=== PATIENT | male | born 1960 | race American Indian/Alaskan Native ===

== ENCOUNTER 2019-01-10 18:26 | Inpatient (IN) | payer OTHER ==
--- NOTE | 2019-01-10 18:35 | Event Note ---
ED Screening Note Date of service: 01/10/19 Time: 18:33 ED Screening Note: This is a 58 y.o. M. that presents to the ER with right sided abdominal pain x 1 week. Denies n/v/d, fever, chills, urinary symptoms. This initial assessment/diagnostic orders/clinical plan/treatment(s) is/are subject to change based on patients health status, clinical progression and re- assessment by fellow clinical providers in the ED. Further treatment and workup at subsequent clinical providers discretion. Patient/guardian urged not to elope from the ED as their condition may be serious if not clinically assessed and managed. Initial orders include: Labs
[2019-01-10 19:27] LABS: Mean Corpuscular HGB Conc 30 % (32-34); Mean Corpuscular Volume 73 fl (84-94); Platelet Count 594 K/mm3 (140-440); Red Blood Count 4.49 M/mm3 (3.65-5.03)
[2019-01-10 19:30] LABS: Hematocrit 32.7 % (35.5-45.6); Hemoglobin 9.9 gm/dl (11.8-15.2); Red Cell Distribution Width 21.5 % (13.2-15.2)
[2019-01-10] MEDS ORDERED: ZOSYN/NS 3.375GM/50ML 3.375 GM/50 ML BAG IV ONE (20:23)
[2019-01-10] MEDS ORDERED: NACL 0.9% 1000 ML 1,000 ML IV ONE (20:24)
[2019-01-10 20:30] LABS: Alanine Aminotransferase 12 units/L (7-56); Albumin 3.1 g/dL (3.9-5); BUN/Creatinine Ratio 10; Blood Urea Nitrogen 8 mg/dL (9-20); Calcium 9.2 mg/dL (8.4-10.2); Hemolysis Index 0
--- NOTE | 2019-01-10 20:39 | Emergency Department Report ---
ED Abdominal Pain HPI - General Chief Complaint: Abdominal Pain Stated Complaint: STOMACH PAIN Time Seen by Provider: 01/10/19 18:33 Source: patient Mode of arrival: Stretcher Limitations: No Limitations - History of Present Illness Initial Comments: Patient is 58 years old male with no significant past medical history. Patient presented to the ER complaining of right lower quadrant pain for the last 7 days. Patient also stated that he has been having fever and chills. Patient denied any diarrhea. No recent abdominal injury. Patient denied any urinary symptoms. MD Complaint: abdominal pain Location: RLQ Radiation: none - Related Data Previous Rx's Medication Instructions Recorded Last Taken Type HYDROcodone/APAP 5-325 [[place]ady 1 each PO Q6HR PRN #15 tablet 05/27/13 Unknown Rx 5/325 mg] SILVER sulfADIAZINE 50 GRAM 1 applicatio TP BID #1 tube 05/27/13 Unknown Rx [Thermazene 50 Gram] Sulfamethoxazole/Trimethoprim 1 each PO BID #14 tablet 05/27/13 Unknown Rx [Bactrim Ds] cephALEXin [Keflex] 500 mg PO Q6H #28 capsule 05/27/13 Unknown Rx Allergies Allergy/AdvReac Type Severity Reaction Status Date / Time quinine Allergy Rash Verified 05/27/13 13:53 ED Review of Systems ROS: Stated complaint: STOMACH PAIN Other details as noted in HPI Comment: All other systems reviewed and negative Constitutional: denies: chills, fever Respiratory: denies: cough, shortness of breath, SOB with exertion Cardiovascular: denies: chest pain, palpitations Gastrointestinal: abdominal pain. denies: nausea, vomiting, diarrhea, constipation Genitourinary: denies: urgency, dysuria Musculoskeletal: denies: back pain Neurological: denies: headache, weakness ED Past Medical Hx - Past Medical History Previous Medical History?: No - Surgical History Past Surgical History?: No - Social History Smoking Status: Never Smoker - Medications Home Medications: Home Medications Medication Instructions Recorded Confirmed Last Taken Type HYDROcodone/APAP 5-325 [[place]ady 1 each PO Q6HR PRN #15 tablet 05/27/13 Unknown Rx 5/325 mg] SILVER sulfADIAZINE 50 GRAM 1 applicatio TP BID #1 tube 05/27/13 Unknown Rx [Thermazene 50 Gram] Sulfamethoxazole/Trimethoprim 1 each PO BID #14 tablet 05/27/13 Unknown Rx [Bactrim Ds] cephALEXin [Keflex] 500 mg PO Q6H #28 capsule 05/27/13 Unknown Rx ED Physical Exam - General Limitations: No Limitations General appearance: alert, in no apparent distress - Head Head exam: Present: atraumatic, normocephalic, normal inspection - Eye Eye exam: Present: normal appearance, PERRL - ENT ENT exam: Present: mucous membranes dry - Neck Neck exam: Present: normal inspection. Absent: tenderness, meningismus, lymphadenopathy - Respiratory Respiratory exam: Present: normal lung sounds bilaterally - Cardiovascular Cardiovascular Exam: Present: tachycardia - GI/Abdominal GI/Abdominal exam: Present: soft, normal bowel sounds. Absent: distended, tenderness, guarding, rebound, rigid, mass, bruit, pulsatile mass, hernia - Extremities Exam Extremities exam: Present: normal inspection, full ROM, normal capillary refill. Absent: tenderness, pedal edema, joint swelling, calf tenderness - Back Exam Back exam: Present: normal inspection, full ROM. Absent: CVA tenderness (R), CVA tenderness (L), muscle spasm, paraspinal tenderness, vertebral tenderness - Neurological Exam Neurological exam: Present: alert, oriented X3, CN II-XII intact, normal gait, reflexes normal - Psychiatric Psychiatric exam: Present: normal mood - Skin Skin exam: Present: warm, intact, normal color ED Course Vital Signs 01/10/19 18:28 Temperature 99.6 F Pulse Rate 118 H Respiratory 18 Rate Blood Pressure 125/77 O2 Sat by Pulse 100 Oximetry ED Medical Decision Making - Lab Data Result diagrams: 01/10/19 18:51 01/10/19 18:51 - Radiology Data Radiology results: report reviewed - Medical Decision Making Patient is 58 years old male with no significant past medical history. Patient presented to the ER complaining of right lower quadrant pain for the last 7 days. Patient also stated that he has been having fever and chills. Patient denied any diarrhea. No recent abdominal injury. Patient denied any urinary symptoms. I discussed the patient with Dr Galvin from surgery advised to keep patient npo and admit to the hospitalist. I discussed the patient with Dr Raul Cotto, he agreed to consult on the patient. I discussed the patient with DR Ruiz, he agreed to admit to the hospital for further management. Critical Care Time: Yes Critical care time in (mins) excluding proc time.: 30 Critical care attestation.: If time is entered above; I have spent that time in minutes in the direct care of this critically ill patient, excluding procedure time. ED Disposition Clinical Impression: Abdominal abscess, Abdominal pain Disposition: OP ADMIT IP TO THIS HOSP Is pt being admited?: Yes Condition: Stable
[2019-01-10 21:17] LABS: Basophils % (Manual) 0 % (0.0-1.8); Eosinophils % (Manual) 0 % (0.0-4.3); Platelet Estimate Appears Increased; Total Cells Counted 100
[2019-01-10 21:18] LABS: Anisocytosis 1+; Hypochromasia 1+; Large Platelets 1+; Poikilocytosis 1+
--- NOTE | 2019-01-10 22:14 | Cat Scan Report ---
CT ABDOMEN AND PELVIS WITH IV CONTRAST INDICATION: abdominal pain. COMPARISON: None available. TECHNIQUE: All CT scans at this facility use dose modulation, automated exposure control, iterative reconstructi on or weight based dosing, when appropriate, to reduce radiation dose to as low as reasonably achieva ble. FINDINGS: Lung Bases: No significant abnormality. Skeletal System: No acute abnormality. ABDOMEN: Liver: There is a cyst in the anterior inferior left hepatic lobe. Hepatic parenchyma is otherwise un remarkable. Gallbladder: Mild gallbladder wall edema is noted. The gallbladder is contracted. Bile Ducts: There is very mild intrahepatic and common bile duct dilatation. Pancreas: The pancreatic duct is mildly dilated. There is mild inflammation around the pancreatic hea d. Spleen: No significant abnormality. Adrenals: No significant abnormality. Right Kidney: No significant abnormality. Left Kidney: No significant abnormality. Upper GI tract: There is mild inflammation around the proximal duodenum. Lymph Nodes: There are several mesenteric nodes which are not enlarged but increased in number. There are a few borderline enlarged retroperitoneal periaortic lymph nodes. Aorta: No significant abnormality. Additional Findings: No significant abnormality. PELVIS: Colon: There is an inflammatory process involving the proximal transverse colon with somewhat serpig inous peripherally enhancing fluid collection in the pericolonic right upper quadrant which may be in tramural. There is marked wall thickening of the adjacent proximal transverse colon/hepatic flexure. More distal colon is unremarkable. Urinary Bladder and Distal Ureters: There is mild bladder wall thickening. Appendix: No significant abnormality. Lymph Nodes: No significant adenopathy. Additional Findings: Prostate is enlarged. IMPRESSION: 1. There is severe inflammatory process which involves the proximal transverse colon. This is concer marcello for primary colonic carcinoma with phlegmon versus early abscess. The pericolonic collection whi ch may be intramural is difficult to measure given its serpiginous nature but measures approximately 6 x 6 cm on axial image 79 of series 2. There is secondary inflammation of the duodenum, pancreas, an d gallbladder which are all in this area. Mesenteric and retroperitoneal nodes could be metastatic or reactive. This could be secondary to an inflammatory process; however, I do not see significant dive rticulosis and the remainder of the colon as well as the appendix are normal. Surgical consultation i s needed. There is no colonic obstruction at this time. There is trace free fluid in the pelvis. No f ree air is seen. No gas is seen within the pericolonic collection. 2. Prostate is enlarged with probable mild chronic outlet obstruction. Signer Name: Neville Mi MD Signed: 01/10/2019 10:09 PM Workstation Name: [id number]
[2019-01-10 22:40] LABS: Bilirubin,Urine NEG (Negative); Blood,Urine NEG (Negative); Color,Urine Amber (Yellow); Mucus,Urine 1+ /HPF; Urobilinogen,Urine < 2.0 mg/dL (<2.0)
[2019-01-10] MEDS ORDERED: ZOFRAN IV PRN (23:12)
[2019-01-10] MEDS ORDERED: TYLENOL PR PRN (23:16)
[2019-01-10] MEDS ORDERED: MORPHINE IV PRN (23:16)
[2019-01-10] MEDS ORDERED: FLAGYL 500 MG/100 ML 500 MG/100 ML BAG IV ONE (23:52)
[2019-01-10] MEDS: FLAGYL 500 MG/100 ML 500 MG/100 ML BAG IV SCH (23:57)
[2019-01-11 05:42] LABS: Mean Corpuscular HGB Conc 30 % (32-34); Mean Corpuscular Volume 73 fl (84-94); Platelet Count 507 K/mm3 (140-440); Red Blood Count 4.39 M/mm3 (3.65-5.03)
--- NOTE | 2019-01-11 05:42 | History and Physical Report ---
CHIEF COMPLAINT: Abdominal pain. HISTORY OF PRESENTING ILLNESS: The patient is a 58-year-old male who said he has been having right upper and right lower quadrant abdominal pain going on for about 7 days. Pain is associated with nausea and vomiting. Also, there is history of fever and chills. The patient denied history of constipation and denied history of diarrhea and described the pain as dull pain that does not radiate. PAST MEDICAL HISTORY: Unremarkable. PAST SURGICAL HISTORY: Unremarkable. FAMILY HISTORY: Reviewed and noncontributory. SOCIAL HISTORY: The patient does not smoke, does not drink alcohol and does not use illicit drug. MEDICATIONS: The patient is on [place], hydrocodone/acetaminophen 5/325 mg 1 by mouth every 6 hours as needed for pain. The patient is also on Silvadene topical, 1 application topically twice daily and on double strength Bactrim one by mouth twice daily. The patient is on Keflex 500 mg by mouth every 6 hours. ALLERGIES: THE PATIENT IS ALLERGIC TO QUININE. REVIEW OF SYSTEMS: CONSTITUTIONAL: There is fever. There are chills, but no diaphoresis. HEENT: There is no headache or sore throat. CARDIOVASCULAR SYSTEM: There is no chest pain or orthopnea. RESPIRATORY SYSTEM: There is no shortness of breath or cough. GASTROINTESTINAL SYSTEM: Abdominal pain present. Nausea and vomiting present. No diarrhea, no constipation. NEUROLOGICAL SYSTEM: There is no numbness, no dizziness, no altered mental status. MUSCULOSKELETAL SYSTEM: There is no joint pain or swelling. DERMATOLOGICAL SYSTEM: There is no skin rash or itching. GENITOURINARY SYSTEM: There is no dysuria, hematuria, or flank pain. Rest of system review is normal. PHYSICAL EXAMINATION: GENERAL: At the time of exam, the patient was found to be alert, oriented x 3 and not in acute distress. VITAL SIGNS: At the initial time of presentation showed temperature of 99.6 degrees Fahrenheit, pulse of 108, respirations 18, blood pressure 125/77, O2 sat of 100% on room air. HEENT: Showed pupils to be equal, round, reactive to light and accommodating. Extraocular muscles are intact. NECK: Supple with no JVD or carotid bruit. CARDIOVASCULAR SYSTEM: Showed normal first and second heart sounds with no gallops or murmurs. RESPIRATORY SYSTEM: Showed good air entry on both sides of the lungs with no abnormal breath sounds. GASTROINTESTINAL SYSTEM: Showed abdomen to be full, soft with tenderness in the right upper quadrant area. There is no rigidity and there is a palpable liver in the right upper quadrant area below the right costal margin. Bowel sound is normal and there is no rigidity or rebound tenderness. NEUROLOGICAL SYSTEM: Shows no focal deficit. MUSCULOSKELETAL SYSTEM: Showed no joint swelling or tenderness. DERMATOLOGICAL SYSTEM: Showed no skin rash. GENITOURINARY SYSTEM: Showing no costovertebral angle tenderness. PERTINENT LABORATORY: The patient had CBC done with elevated white count of 23,800 with low hemoglobin of 9.9 and low hematocrit of 32.7 with CBC differential showing elevated segmentary neutrophil count of 91%. The patient's chemistry showed low sodium of 133 with low chloride of 95.5 and low CO2 of 21 with rest of chemistry showing slight decrease in albumin level of 3.1. The patient's urinalysis was unremarkable. IMAGING STUDIES: The patient had CT of the abdomen and pelvis done with IV contrast and this shows severe inflammatory process involving the proximal transverse colon and the radiologist said it is concerning for primary colonic carcinoma with phlegmon versus early abscess. The mesenteric and retroperitoneal nodes could be metastatic or reactive according to the radiologist. There is no evidence of diverticulosis and the appendix was visualized as normal. Radiologist recommended to get a surgical consult. DIAGNOSES: 1. Intraabdominal abscess versus malignancy. 2. Sepsis. 3. Abdominal pain. PLAN OF CARE: 1. The patient will be admitted to medical/surgical white. 2. The patient will be on IV Zosyn 3.375 grams q. 8 hours and also IV metronidazole 500 mg q. 8 hours. 3. The patient will also be on Levaquin 1 gram q. 24 hours for treatment of possible sepsis. 4. The patient will remain n.p.o. until seen by the surgeon. 5. The patient will continue surgical consult with Dr. Galvin and GI consult with Dr. Raul Cotto as requested by the Emergency Room physician. 6. The patient will have CBC checked this morning. 7. The patient will be on IV normal saline running at 150 mL as maintenance fluid for possible sepsis. 8. The patient will be on Tylenol 650 mg rectally every 4 hours for fever and headache and will be on IV Zofran 4 mg every 8 hours for nausea and vomiting. 9. The patient will be on IV morphine 2 mg every 4 hours as needed for pain. 10. latic acid level [facility]# [id number] [facility]/SWETHA DALEY
[2019-01-11] MEDS: FLAGYL 500 MG/100 ML 500 MG/100 ML BAG IV SCH ×3 (05:43→21:31)
[2019-01-11 05:45] LABS: Hemoglobin 9.6 gm/dl (11.8-15.2)
[2019-01-11 05:46] LABS: Hematocrit 31.9 % (35.5-45.6); Red Cell Distribution Width 21.4 % (13.2-15.2)
[2019-01-11] MEDS: ZOSYN/NS 3.375GM/50ML 3.375 GM/50 ML BAG IV SCH ×3 (06:33→21:31)
[2019-01-11] MEDS: NACL 0.9% 1000 ML 1,000 ML IV SCH ×3 (10:23→16:58)
[2019-01-11] MEDS: LEVAQUIN 750MG/150ML 750 MG/150 ML BAG IV SCH (10:29)
--- NOTE | 2019-01-11 11:32 | Progress Note ---
Assessment and Plan Assessment and plan: Patient is a 58 yo AA man without any known chronic medical problems who presents to [facility] ED with abd pains. He was found to colon mass or abscess or mass causing abscess. * CT abd/pelvis with contrast IMPRESSION: 1. There is severe inflammatory process which involves the proximal transverse colon. This is concerning for primary colonic carcinoma with phlegmon versus early abscess. The pericolonic collection which may be intramural is difficult to measure given its serpiginous nature but measures approximately 6 x 6 cm on axial image 79 of series 2. There is secondary inflammation of the duodenum, pancreas, and gallbladder which are all in this area. Mesenteric and retroperitoneal nodes could be metastatic or reactive. This could be secondary to an inflammatory process; however, I do not see significant diverticulosis and the remainder of the colon as well as the appendix are normal. Surgical consultation is needed. There is no colonic obstruction at this time. There is trace free fluid in the pelvis. No free air is seen. No gas is seen within the pericolonic collection. 2. Prostate is enlarged with probable mild chronic outlet obstruction. Suspected Colon cancer with abscess vs mets: treat with IV abx, consulted GI, bowel rest, pain control, IVFs Sepsis with suspected colonic abscess: GS to evaluate Microcytic anemia most likely related to the above: monitor cbc closely Hyponatremia, hypovolemia: treat with IVFs History Interval history: Patient was seen and examined. Follow-up on current diagnosis abd pains. No overnight events reported to me. Patient denies any chest pain, shortness breath, nausea/vomiting or severe headaches. Imaging, nursing note, chart, labs and old chart reviewed. Discussed with patient. Hospitalist Physical - Physical exam Narrative exam: Gen: WDWN, NAD, Awake, Alert, Orientated HEENT: NCAT, EOMI, PERRL, OP Clear Neck: supple, no adenopathy, no thyromegaly, no JVD CVS/Heart: regular tachycardia, normal S1S2, pulses present bilaterally Chest/Lungs: CTA B, Symmetrical chest expansion, good air entry bilaterally GI/Abdomen: diffuse abd tenderness, good bowel sounds, no rebound /Bladder: no suprapubic tenderness, no CVA or paraspinal tenderness Extermity/Skin: no c/c/e, no obvious rash MSK: FROM x 4 Neuro: CN 2-12 grossly intact, no new focal deficits Psych: calm - Constitutional Vitals: Temp Pulse Resp BP Pulse Ox 98.1 F 140 H 18 90/53 98 01/11/19 04:36 01/11/19 11:22 01/11/19 04:36 01/11/19 11:22 01/11/19 11:22 Results - Labs CBC & Chem 7: 01/11/19 04:43 01/10/19 18:51 Labs: Laboratory Last Values WBC 23.1 K/mm3 (4.5-11.0) H 01/11/19 04:43 RBC 4.39 M/mm3 (3.65-5.03) 01/11/19 04:43 Hgb 9.6 gm/dl (11.8-15.2) L 01/11/19 04:43 Hct 31.9 % (35.5-45.6) L 01/11/19 04:43 MCV 73 fl (84-94) L 01/11/19 04:43 MCH 22 pg (28-32) L 01/11/19 04:43 MCHC 30 % (32-34) L 01/11/19 04:43 RDW 21.4 % (13.2-15.2) H 01/11/19 04:43 Plt Count 507 K/mm3 (140-440) H 01/11/19 04:43 Lymph % (Auto) [employer] 01/10/19 18:51 Mercer % (Auto) [employer] 01/10/19 18:51 Eos % (Auto) [employer] 01/10/19 18:51 Baso % (Auto) [employer] 01/10/19 18:51 Lymph # [employer] 01/10/19 18:51 Mercer # [employer] 01/10/19 18:51 Eos # [employer] 01/10/19 18:51 Baso # [employer] 01/10/19 18:51 Add Manual Diff Complete 01/10/19 18:51 Total Counted 100 01/10/19 18:51 Seg Neutrophils % [employer] 01/10/19 18:51 Seg Neuts % (Manual) 91.0 % (40.0-70.0) H 01/10/19 18:51 Band Neutrophils % 0 % 01/10/19 18:51 Lymphocytes % (Manual) 7.0 % (13.4-35.0) L 01/10/19 18:51 Reactive Lymphs % (Man) 0 % 01/10/19 18:51 Monocytes % (Manual) 2.0 % (0.0-7.3) 01/10/19 18:51 Eosinophils % (Manual) 0 % (0.0-4.3) 01/10/19 18:51 Basophils % (Manual) 0 % (0.0-1.8) 01/10/19 18:51 Metamyelocytes % 0 % 01/10/19 18:51 Myelocytes % 0 % 01/10/19 18:51 Promyelocytes % 0 % 01/10/19 18:51 Blast Cells % 0 % 01/10/19 18:51 Nucleated RBC % Not Reportable 01/10/19 18:51 Seg Neutrophils # [employer] 01/10/19 18:51 Seg Neutrophils # Man 21.7 K/mm3 (1.8-7.7) H 01/10/19 18:51 Band Neutrophils # 0.0 K/mm3 01/10/19 18:51 Lymphocytes # (Manual) 1.7 K/mm3 (1.2-5.4) 01/10/19 18:51 Abs React Lymphs (Man) 0.0 K/mm3 01/10/19 18:51 Monocytes # (Manual) 0.5 K/mm3 (0.0-0.8) 01/10/19 18:51 Eosinophils # (Manual) 0.0 K/mm3 (0.0-0.4) 01/10/19 18:51 Basophils # (Manual) 0.0 K/mm3 (0.0-0.1) 01/10/19 18:51 Metamyelocytes # 0.0 K/mm3 01/10/19 18:51 Myelocytes # 0.0 K/mm3 01/10/19 18:51 Promyelocytes # 0.0 K/mm3 01/10/19 18:51 Blast Cells # 0.0 K/mm3 01/10/19 18:51 WBC Morphology Not Reportable 01/10/19 18:51 Hypersegmented Neuts Not Reportable 01/10/19 18:51 Hyposegmented Neuts Not Reportable 01/10/19 18:51 Hypogranular Neuts Not Reportable 01/10/19 18:51 Smudge Cells Not Reportable 01/10/19 18:51 Toxic Granulation Not Reportable 01/10/19 18:51 Toxic Vacuolation Not Reportable 01/10/19 18:51 Dohle Bodies Not Reportable 01/10/19 18:51 Pelger-Huet Anomaly Not Reportable 01/10/19 18:51 Angela Rods Not Reportable 01/10/19 18:51 Platelet Estimate Appears increased 01/10/19 18:51 Clumped Platelets Not Reportable 01/10/19 18:51 Plt Clumps, EDTA Not Reportable 01/10/19 18:51 Large Platelets 1+ 01/10/19 18:51 Giant Platelets Not Reportable 01/10/19 18:51 Platelet Satelliting Not Reportable 01/10/19 18:51 Plt Morphology Comment Not Reportable 01/10/19 18:51 RBC Morphology Not Reportable 01/10/19 18:51 Dimorphic RBCs Not Reportable 01/10/19 18:51 Polychromasia Not Reportable 01/10/19 18:51 Hypochromasia 1+ 01/10/19 18:51 Poikilocytosis 1+ 01/10/19 18:51 Anisocytosis 1+ 01/10/19 18:51 Microcytosis Not Reportable 01/10/19 18:51 Macrocytosis Not Reportable 01/10/19 18:51 Spherocytes Not Reportable 01/10/19 18:51 Pappenheimer Bodies Not Reportable 01/10/19 18:51 Sickle Cells Not Reportable 01/10/19 18:51 Target Cells Not Reportable 01/10/19 18:51 Tear Drop Cells Not Reportable 01/10/19 18:51 Ovalocytes Not Reportable 01/10/19 18:51 Helmet Cells Not Reportable 01/10/19 18:51 [place] Bodies Not Reportable 01/10/19 18:51 [place] Rings Not Reportable 01/10/19 18:51 Sun Cells Not Reportable 01/10/19 18:51 Bite Cells Not Reportable 01/10/19 18:51 Crenated Cell Not Reportable 01/10/19 18:51 Elliptocytes Not Reportable 01/10/19 18:51 Acanthocytes (Spur) Not Reportable 01/10/19 18:51 Rouleaux Not Reportable 01/10/19 18:51 Hemoglobin C Crystals Not Reportable 01/10/19 18:51 Schistocytes Not Reportable 01/10/19 18:51 Malaria parasites Not Reportable 01/10/19 18:51 [place]alo Bodies Not Reportable 01/10/19 18:51 Hem Pathologist Commnt No 01/10/19 18:51 Sodium 133 mmol/L (137-145) L 01/10/19 18:51 Potassium 4.4 mmol/L (3.6-5.0) 01/10/19 18:51 Chloride 95.5 mmol/L (98-107) L 01/10/19 18:51 Carbon Dioxide 21 mmol/L (22-30) L 01/10/19 18:51 Anion Gap 21 mmol/L 01/10/19 18:51 BUN 8 mg/dL (9-20) L 01/10/19 18:51 Creatinine 0.8 mg/dL (0.8-1.5) 01/10/19 18:51 Estimated GFR > 60 ml/min 01/10/19 18:51 BUN/Creatinine Ratio 10 % 01/10/19 18:51 Glucose 108 mg/dL (75-100) H 01/10/19 18:51 Calcium 9.2 mg/dL (8.4-10.2) 01/10/19 18:51 Total Bilirubin 0.60 mg/dL (0.1-1.2) 01/10/19 18:51 AST 22 units/L (5-40) 01/10/19 18:51 ALT 12 units/L (7-56) 01/10/19 18:51 Alkaline Phosphatase 111 units/L (35-129) 01/10/19 18:51 Total Protein 8.9 g/dL (6.3-8.2) H 01/10/19 18:51 Albumin 3.1 g/dL (3.9-5) L 01/10/19 18:51 Albumin/Globulin Ratio 0.5 % 01/10/19 18:51 Lipase 17 units/L (13-60) 01/10/19 18:51 Urine Color Sybil (Yellow) 01/10/19 Unknown Urine Turbidity Slightly-cloudy (Clear) 01/10/19 Unknown Urine pH 5.0 (5.0-7.0) 01/10/19 Unknown Ur Specific [place] 1.021 (1.003-1.030) 01/10/19 Unknown Urine Protein 30 mg/dl mg/dL (Negative) 01/10/19 Unknown Urine Glucose (UA) Neg mg/dL (Negative) 01/10/19 Unknown Urine Ketones 20 mg/dL (Negative) 01/10/19 Unknown Urine Blood Neg (Negative) 01/10/19 Unknown Urine Nitrite Neg (Negative) 01/10/19 Unknown Urine Bilirubin Neg (Negative) 01/10/19 Unknown Urine Urobilinogen < 2.0 mg/dL (<2.0) 01/10/19 Unknown Ur Leukocyte Esterase Neg (Negative) 01/10/19 Unknown Urine WBC (Auto) 3.0 /HPF (0.0-6.0) 01/10/19 Unknown Urine RBC (Auto) 2.0 /HPF (0.0-6.0) 01/10/19 Unknown Urine Mucus 1+ /HPF 01/10/19 Unknown Active Medications - Current Medications Current Medications: Generic Name Dose Route Start Last Admin Trade Name Freq PRN Reason Stop Dose Admin Acetaminophen 650 mg 01/10/19 23:16 Tylenol [place] Q4H PRN Fever >101 Piperacillin Sod/Tazobactam Sod 3.375 gm in 50 mls @ 100 mls/hr 01/11/19 06:00 01/11/19 06:33 Zosyn/Ns 3.375gm/50ml IV 100 mls/hr Q8HR ALPESH Administration Protocol Metronidazole 500 mg in 100 mls @ 100 mls/hr 01/10/19 23:45 01/11/19 05:43 Flagyl 500 Mg/100 Ml IV 100 mls/hr Q8HR ALPESH Administration Protocol Levofloxacin/Dextrose 750 mg in 150 mls @ 100 mls/hr 01/11/19 10:00 01/11/19 10:29 Levaquin 750mg/150ml IV 100 mls/hr Q24HR ALPESH Administration Protocol Sodium Chloride 1,000 mls @ 150 mls/hr 01/11/19 05:00 01/11/19 10:23 Nacl 0.9% 1000 Ml IV 150 mls/hr DIRECT ALPESH Administration Morphine Sulfate 2 mg 01/10/19 23:16 01/11/19 10:26 Morphine IV 2 mg Q4H PRN Administration Pain, Moderate (4-6) Ondansetron HCl 4 mg 01/10/19 23:12 Zofran IV Q8H PRN Nausea And Vomiting
--- NOTE | 2019-01-11 12:10 | Consultation ---
History of Present Illness Consult date: 01/11/19 Reason for consult: abdominal pain Requesting physician: STEVE LITTLEJOHN Chief complaint: abdominal pain - History of present illness History of present illness: 58yo M who does not regularly see a physician presented to the emergency department with a one-week history of severe abdominal pain. Patient has had fevers, chills, nausea, vomiting. He has not had a bowel movement or passed gas in the past 4 days. Denies any blood or blackness of the stools prior to that. Prior to 1 week ago, he denies having any problems or issues. Denies any change in appetite, change in weight, change in energy level, change in bowel habits, etc. Family history is significant for a mother with colon cancer in her 70s. Currently, denies any chest pain, SOB, lightheadedness, dizziness, significant weakness, etc. Past History Past Medical History: No medical history Past Surgical History: No surgical history Social history: denies: smoking, alcohol abuse Family history: cancer (mother - colon in her 70s) Medications and Allergies Allergies Allergy/AdvReac Type Severity Reaction Status Date / Time quinine Allergy Rash Verified 05/27/13 13:53 Home Medications Medication Instructions Recorded Confirmed Last Taken Type No Known Home Medications [No 01/11/19 01/11/19 Unknown History Reported Home Medications] Active Meds: Active Medications Acetaminophen (Tylenol) 650 mg DC Q4H PRN PRN Reason: Fever >101 Piperacillin Sod/Tazobactam Sod (Zosyn/Ns 3.375gm/50ml) 3.375 gm in 50 mls @ 100 mls/hr IV Q8HR ALPESH; Protocol Last Admin: 01/11/19 06:33 Dose: 100 mls/hr Documented by: Metronidazole (Flagyl 500 Mg/100 Ml) 500 mg in 100 mls @ 100 mls/hr IV Q8HR ALPESH; Protocol Last Admin: 01/11/19 05:43 Dose: 100 mls/hr Documented by: Levofloxacin/Dextrose (Levaquin 750mg/150ml) 750 mg in 150 mls @ 100 mls/hr IV Q24HR ALPESH; Protocol Last Admin: 01/11/19 10:29 Dose: 100 mls/hr Documented by: Sodium Chloride (Nacl 0.9% 1000 Ml) 1,000 mls @ 150 mls/hr IV DIRECT ALPESH Last Admin: 01/11/19 10:23 Dose: 150 mls/hr Documented by: Morphine Sulfate (Morphine) 2 mg IV Q4H PRN PRN Reason: Pain, Moderate (4-6) Last Admin: 01/11/19 10:26 Dose: 2 mg Documented by: Ondansetron HCl (Zofran) 4 mg IV Q8H PRN PRN Reason: Nausea And Vomiting Review of Systems - Constitutional fever, chills, no weight loss, no sweats, no night sweats, no weakness, no lethargy, no chronic pain - Cardiovascular no chest pain, no palpitations, no rapid/irregular heart beat, no syncope, no lightheadedness, no shortness of breath, no dyspnea on exertion - Respiratory no cough - Gastrointestinal abdominal pain, nausea, vomiting, change in bowel habits, loss of appetite (about 1 week ago due to pain), dyspepsia/bloating, no hematemesis, no coffee ground emesis, no BRBPR, no melena, no hematochezia, no early satiety - Genitourinary no dysuria - Muskuloskeletal no low back pain - Integumentary no rash, no pruritis, no redness, no sores, no wounds - Neurological no weakness, no syncope, no headaches, no double vision Exam Vital Signs Temp Pulse Resp BP Pulse Ox 99.6 F 118 H 18 125/77 100 01/10/19 18:28 01/10/19 18:28 01/10/19 18:28 01/10/19 18:28 01/10/19 18:28 - General physical appearance Positive: no distress, no pain, other (thin, pleasant gentlemen. completely awake and alert. Speech normal.) - Eyes Positive: normal occular movement. Negative: icteric - Respiratory Positive: normal expansion, normal respiratory effort, clear to auscultation - Cardiovascular Rhythm: regular (tachy) - Abdomen Abdomen: Present: soft, tender (only in RUQ over the mass), bowel sounds hypo active, masses (large mass in the RUQ. seen on visual exam), guarding. Absent: rigid, wound, surgical scars - Integumentary no rash, no growths, no abnormal pigmentation - Neurologic Neurologic: alert and oriented to time, place and person, motor strength and sensation are grossly intact - Psychiatric Psychiatric: appropriate mood/affect, intact judgment & insight, cooperative Results - Labs 01/11/19 04:43 01/10/19 18:51 Abnormal lab results 01/10/19 01/10/19 01/11/19 Range/Units 18:51 18:51 04:43 WBC 23.8 H 23.1 H (4.5-11.0) K/mm3 Hgb 9.9 L 9.6 L (11.8-15.2) gm/dl Hct 32.7 L 31.9 L (35.5-45.6) % MCV 73 L 73 L (84-94) fl MCH 22 L 22 L (28-32) pg MCHC 30 L 30 L (32-34) % RDW 21.5 H 21.4 H (13.2-15.2) % Plt Count 594 H 507 H (140-440) K/mm3 Seg Neuts % (Manual) 91.0 H (40.0-70.0) % Lymphocytes % (Manual) 7.0 L (13.4-35.0) % Seg Neutrophils # Man 21.7 H (1.8-7.7) K/mm3 Sodium 133 L (137-145) mmol/L Chloride 95.5 L (98-107) mmol/L Carbon Dioxide 21 L (22-30) mmol/L BUN 8 L (9-20) mg/dL Glucose 108 H (75-100) mg/dL Total Protein 8.9 H (6.3-8.2) g/dL Albumin 3.1 L (3.9-5) g/dL Diabetes panel 01/10/19 Range/Units 18:51 Sodium 133 L (137-145) mmol/L Potassium 4.4 (3.6-5.0) mmol/L Chloride 95.5 L (98-107) mmol/L Carbon Dioxide 21 L (22-30) mmol/L BUN 8 L (9-20) mg/dL Creatinine 0.8 (0.8-1.5) mg/dL Glucose 108 H (75-100) mg/dL Calcium 9.2 (8.4-10.2) mg/dL AST 22 (5-40) units/L ALT 12 (7-56) units/L Alkaline Phosphatase 111 (35-129) units/L Total Protein 8.9 H (6.3-8.2) g/dL Albumin 3.1 L (3.9-5) g/dL Calcium panel 01/10/19 Range/Units 18:51 Calcium 9.2 (8.4-10.2) mg/dL Albumin 3.1 L (3.9-5) g/dL Pituitary panel 01/10/19 Range/Units 18:51 Sodium 133 L (137-145) mmol/L Potassium 4.4 (3.6-5.0) mmol/L Chloride 95.5 L (98-107) mmol/L Carbon Dioxide 21 L (22-30) mmol/L BUN 8 L (9-20) mg/dL Creatinine 0.8 (0.8-1.5) mg/dL Glucose 108 H (75-100) mg/dL Calcium 9.2 (8.4-10.2) mg/dL Adrenal panel 01/10/19 Range/Units 18:51 Sodium 133 L (137-145) mmol/L Potassium 4.4 (3.6-5.0) mmol/L Chloride 95.5 L (98-107) mmol/L Carbon Dioxide 21 L (22-30) mmol/L BUN 8 L (9-20) mg/dL Creatinine 0.8 (0.8-1.5) mg/dL Glucose 108 H (75-100) mg/dL Calcium 9.2 (8.4-10.2) mg/dL Total Bilirubin 0.60 (0.1-1.2) mg/dL AST 22 (5-40) units/L ALT 12 (7-56) units/L Alkaline Phosphatase 111 (35-129) units/L Total Protein 8.9 H (6.3-8.2) g/dL Albumin 3.1 L (3.9-5) g/dL - Imaging CT scan - abdomen: report reviewed, image reviewed CT scan - pelvis: report reviewed, image reviewed Assessment and Plan - Patient Problems (1) Abdominal pain Current Visit: Yes Status: Acute Qualifiers: Abdominal location: right upper quadrant Qualified Code(s): R10.11 - Right upper quadrant pain Plan to address problem: Pt in guarded condition. When I saw the heart rate of 155 at 4 AM, immediately contacted the nurse. Recheck of the vitals showed continued tachycardia and hypotension. I immediately went up to see the patient. Patient was alert and oriented. Head no signs to suggest inadequate perfusion. He had no symptoms to suggest any cardiopulmonary dysfunction. I discussed with the primary team about giving him a fluid bolus. His heart rate is now down to 117 and blood pressure is up. He clinically looked to be dehydrated. This needs to be monitored. I have discussed this with the primary team. As for the CT abnormality in the right upper quadrant, I am very concerned that this is a cancer. It may be the case that he has an abscess associated with the cancer. His current anemia is supportive of a cancer diagnosis. I have explained this to him. Due to that concern, I have ordered a CEA test for the morning. Also, in light of this and his hemodynamic abnormality this morning, I went ahead and obtained consent for an exploratory laparotomy in the event that he declines. I explained the rationale to him. While he is completely awake, oriented, and has the ability to make decisions, I felt this was the best time to get consent in case an emergency arises. He was in agreement. Procedure, risks, benefits were discussed. All questions were answered. I emphasized in addition to the usual risks, the potential need for further surgery, potential need for ostomy, and potential eventual outcome. He understood and gave consent. Hopefully, he will respond to the resuscitation and IV antibiotics. Should he improve, would recommend repeat CT scan with oral and IV contrast. In addition, I think he would benefit from a colonoscopy. Based on those results, we can then decide on surgical intervention. Rec: 1) Keep NPO 2) IV Abx. May benefit from ID consult. 3) Aggressive Resuscitation. I expect that his hemoglobin will drop further based on the assumption that it is hemoconcentrated right now. He will most likely need a transfusion as his resuscitation continues. 4) If he improves, then CT scan with IV/PO contrast and c-scope. 5) Ex-lap if he declines. Will follow along. Please call with questions. time=60min
[2019-01-11] MEDS ORDERED: DULCOLAX PO ONE ×2 (16:07→20:00)
[2019-01-11] MEDS ORDERED: GOLYTELY PO ONE ×2 (16:07→20:00)
--- NOTE | 2019-01-11 16:09 | Gastroenterology Consultation ---
History of Present Illness - Reason for Consult Consult date: 01/11/19 Colon mass, abdominal pain Requesting physician: ZARA BAZAN - History of Present Illness The patient is a 58 yo male with no known significant medical history presenting with 1 week of abdominal pain, primarily right sided, and constipation. he was in his usual state of normal health prior to onset of pain 1 week ago. + associated nausea/vomiting which has since resolved. Constipation coincided with abd pain. Denies gi bleeding. ~10 lb weight loss in the past couple weeks. Mother from colon cancer in her [address]'s. CT scan concerning for colon cancer (proximal transverse inflammatory process) with possible phlegmon/abscess formation. Pt septic on admission, receiving abx, with stable vital signs at the time of exam this afternoon. Past History Past Medical History: No medical history Past Surgical History: No surgical history Social history: denies: smoking, alcohol abuse Family history: cancer (mother - colon in her 70s) Medications and Allergies Allergies Allergy/AdvReac Type Severity Reaction Status Date / Time quinine Allergy Rash Verified 05/27/13 13:53 Home Medications Medication Instructions Recorded Confirmed Last Taken Type No Known Home Medications [No 01/11/19 01/11/19 Unknown History Reported Home Medications] Active Meds: Active Medications Acetaminophen (Tylenol) 650 mg [place] Q4H PRN PRN Reason: Fever >101 Bisacodyl (Dulcolax) 15 mg PO ONCE ONE Stop: 01/11/19 16:08 Piperacillin Sod/Tazobactam Sod (Zosyn/Ns 3.375gm/50ml) 3.375 gm in 50 mls @ 100 mls/hr IV Q8HR ALPESH; Protocol Last Admin: 01/11/19 06:33 Dose: 100 mls/hr Documented by: Metronidazole (Flagyl 500 Mg/100 Ml) 500 mg in 100 mls @ 100 mls/hr IV Q8HR ALPESH; Protocol Last Admin: 01/11/19 05:43 Dose: 100 mls/hr Documented by: Levofloxacin/Dextrose (Levaquin 750mg/150ml) 750 mg in 150 mls @ 100 mls/hr IV Q24HR ALPESH; Protocol Last Admin: 01/11/19 10:29 Dose: 100 mls/hr Documented by: Sodium Chloride (Nacl 0.9% 1000 Ml) 1,000 mls @ 150 mls/hr IV DIRECT ALPESH Last Admin: 01/11/19 10:23 Dose: 150 mls/hr Documented by: Sodium Chloride (Nacl 0.9% 1000 Ml) 1,000 mls @ 0 mls/hr IV ONCE ALPESH Stop: 01/12/19 13:01 Morphine Sulfate (Morphine) 2 mg IV Q4H PRN PRN Reason: Pain, Moderate (4-6) Last Admin: 01/11/19 10:26 Dose: 2 mg Documented by: Ondansetron HCl (Zofran) 4 mg IV Q8H PRN PRN Reason: Nausea And Vomiting Polyethylene Glycol/Electrolytes (Golytely) 4,000 ml PO ONCE ONE Stop: 01/11/19 16:08 Reviewed/updated patient's home and current medications Review of Systems - Review of Systems All systems: negative (per HPI) Exam - Constitutional Vital Signs: Temp Pulse Resp BP Pulse Ox 100.9 F H 117 H 18 100/63 97 01/11/19 12:08 01/11/19 12:08 01/11/19 12:08 01/11/19 12:08 01/11/19 12:08 General appearance: no acute distress - Respiratory Respiratory effort: normal Respiratory: bilateral: CTA - Cardiovascular Rhythm: regular Heart Sounds: Present: S1 & S2 Extremities: No edema, Full ROM - Gastrointestinal General gastrointestinal: Present: soft, tender (mild right sided ttp), non- distended, hypoactive bowel sounds - Integumentary Integumentary: Present: clear, warm - Neurologic Neurological: alert and oriented x3 - Psychiatric Psychiatric: appropriate mood/affect - Labs CBC & Chem 7: 01/11/19 04:43 01/10/19 18:51 Lab Results: Laboratory Results - last 24 hr 01/10/19 01/10/19 01/10/19 18:51 18:51 18:51 WBC 23.8 H RBC 4.49 Hgb 9.9 L Hct 32.7 L MCV 73 L MCH 22 L MCHC 30 L RDW 21.5 H Plt Count 594 H Lymph % (Auto) Electronics Repair Technician [place] % (Auto) Electronics Repair Technician Eos % (Auto) Electronics Repair Technician Baso % (Auto) Electronics Repair Technician Lymph # Electronics Repair Technician [place] # Electronics Repair Technician Eos # Electronics Repair Technician Baso # Electronics Repair Technician Add Manual Diff Complete Total Counted 100 Seg Neutrophils % Electronics Repair Technician Seg Neuts % (Manual) 91.0 H Band Neutrophils % 0 Lymphocytes % (Manual) 7.0 L Reactive Lymphs % (Man) 0 Monocytes % (Manual) 2.0 Eosinophils % (Manual) 0 Basophils % (Manual) 0 Metamyelocytes % 0 Myelocytes % 0 Promyelocytes % 0 Blast Cells % 0 Nucleated RBC % Not Reportable Seg Neutrophils # Electronics Repair Technician Seg Neutrophils # Man 21.7 H Band Neutrophils # 0.0 Lymphocytes # (Manual) 1.7 Abs React Lymphs (Man) 0.0 Monocytes # (Manual) 0.5 Eosinophils # (Manual) 0.0 Basophils # (Manual) 0.0 Metamyelocytes # 0.0 Myelocytes # 0.0 Promyelocytes # 0.0 Blast Cells # 0.0 WBC Morphology Not Reportable Hypersegmented Neuts Not Reportable Hyposegmented Neuts Not Reportable Hypogranular Neuts Not Reportable Smudge Cells Not Reportable Toxic Granulation Not Reportable Toxic Vacuolation Not Reportable Dohle Bodies Not Reportable Pelger-Huet Anomaly Not Reportable Angela Rods Not Reportable Platelet Estimate Appears increased Clumped Platelets Not Reportable Plt Clumps, EDTA Not Reportable Large Platelets 1+ Giant Platelets Not Reportable Platelet Satelliting Not Reportable Plt Morphology Comment Not Reportable RBC Morphology Not Reportable Dimorphic RBCs Not Reportable Polychromasia Not Reportable Hypochromasia 1+ Poikilocytosis 1+ Anisocytosis 1+ Microcytosis Not Reportable Macrocytosis Not Reportable Spherocytes Not Reportable Pappenheimer Bodies Not Reportable Sickle Cells Not Reportable Target Cells Not Reportable Tear Drop Cells Not Reportable Ovalocytes Not Reportable Helmet Cells Not Reportable [place] Bodies Not Reportable [place] Rings Not Reportable [place] Cells Not Reportable Bite Cells Not Reportable Crenated Cell Not Reportable Elliptocytes Not Reportable Acanthocytes (Spur) Not Reportable Rouleaux Not Reportable Hemoglobin C Crystals Not Reportable Schistocytes Not Reportable Malaria parasites Not Reportable Gonzalo Bodies Not Reportable Hem Pathologist Commnt No Sodium 133 L Potassium 4.4 Chloride 95.5 L Carbon Dioxide 21 L Anion Gap 21 BUN 8 L Creatinine 0.8 Estimated GFR > 60 BUN/Creatinine Ratio 10 Glucose 108 H Calcium 9.2 Total Bilirubin 0.60 AST 22 ALT 12 Alkaline Phosphatase 111 Total Protein 8.9 H Albumin 3.1 L Albumin/Globulin Ratio 0.5 Lipase 17 Urine Color Urine Turbidity Urine pH Ur Specific [place] Urine Protein Urine Glucose (UA) Urine Ketones Urine Blood Urine Nitrite Urine Bilirubin Urine Urobilinogen Ur Leukocyte Esterase Urine WBC (Auto) Urine RBC (Auto) Urine Mucus 01/10/19 01/11/19 Unknown 04:43 WBC 23.1 H RBC 4.39 Hgb 9.6 L Hct 31.9 L MCV 73 L MCH 22 L MCHC 30 L RDW 21.4 H Plt Count 507 H Lymph % (Auto) [place] % (Auto) Eos % (Auto) Baso % (Auto) Lymph # [place] # Eos # Baso # Add Manual Diff Total Counted Seg Neutrophils % Seg Neuts % (Manual) Band Neutrophils % Lymphocytes % (Manual) Reactive Lymphs % (Man) Monocytes % (Manual) Eosinophils % (Manual) Basophils % (Manual) Metamyelocytes % Myelocytes % Promyelocytes % Blast Cells % Nucleated RBC % Seg Neutrophils # Seg Neutrophils # Man Band Neutrophils # Lymphocytes # (Manual) Abs React Lymphs (Man) Monocytes # (Manual) Eosinophils # (Manual) Basophils # (Manual) Metamyelocytes # Myelocytes # Promyelocytes # Blast Cells # WBC Morphology Hypersegmented Neuts Hyposegmented Neuts Hypogranular Neuts Smudge Cells Toxic Granulation Toxic Vacuolation Dohle Bodies Pelger-Huet Anomaly Angela Rods Platelet Estimate Clumped Platelets Plt Clumps, EDTA Large Platelets Giant Platelets Platelet Satelliting Plt Morphology Comment RBC Morphology Dimorphic RBCs Polychromasia Hypochromasia Poikilocytosis Anisocytosis Microcytosis Macrocytosis Spherocytes Pappenheimer Bodies Sickle Cells Target Cells Tear Drop Cells Ovalocytes Helmet Cells Soliman-[place] Bodies [place] Rings Christina Cells Bite Cells Crenated Cell Elliptocytes Acanthocytes (Spur) Rouleaux Hemoglobin C Crystals Schistocytes Malaria parasites Gonzalo Bodies Hem Pathologist Commnt Sodium Potassium Chloride Carbon Dioxide Anion Gap BUN Creatinine Estimated GFR BUN/Creatinine Ratio Glucose Calcium Total Bilirubin AST ALT Alkaline Phosphatase Total Protein Albumin Albumin/Globulin Ratio Lipase Urine Color Sybil Urine Turbidity Slightly-cloudy Urine pH 5.0 Ur Specific [place] 1.021 Urine Protein 30 mg/dl Urine Glucose (UA) Neg Urine Ketones 20 Urine Blood Neg Urine Nitrite Neg Urine Bilirubin Neg Urine Urobilinogen < 2.0 Ur Leukocyte Esterase Neg Urine WBC (Auto) 3.0 Urine RBC (Auto) 2.0 Urine Mucus 1+ - Imaging CT Scan: report reviewed Assessment and Plan 1. Abnormal Colon findings on CT scan - concerning for malignancy; also likely cause of pt's symptoms on presentation. + family h/o colon cancer and anemic as well. surgery following. vitals stable at the time of exam and pt non-toxic appearing. on abx. will plan for prep this evening and colonoscopy tomorrow. discussed with pt's nurse. if any worsening vitals tonight or other changes, instructed to stop prep.
[2019-01-11] MEDS ORDERED: NACL 0.9% 1000 ML 1,000 ML IV SCH (21:09)
[2019-01-12] MEDS: NACL 0.9% 1000 ML 1,000 ML IV SCH ×2 (02:02→10:43)
[2019-01-12] MEDS: ZOSYN/NS 3.375GM/50ML 3.375 GM/50 ML BAG IV SCH ×5 (05:27→19:47)
[2019-01-12] MEDS: FLAGYL 500 MG/100 ML 500 MG/100 ML BAG IV SCH ×2 (05:27→18:35)
[2019-01-12 05:32] LABS: Hematocrit 28.7 % (35.5-45.6); Hemoglobin 8.7 gm/dl (11.8-15.2); Mean Corpuscular HGB Conc 30 % (32-34); Mean Corpuscular Volume 73 fl (84-94); Platelet Count 484 K/mm3 (140-440); Red Blood Count 3.91 M/mm3 (3.65-5.03); Red Cell Distribution Width 21.3 % (13.2-15.2)
[2019-01-12 05:56] LABS: Alanine Aminotransferase 8 units/L (7-56); Albumin 2.3 g/dL (3.9-5); BUN/Creatinine Ratio 6; Blood Urea Nitrogen 5 mg/dL (9-20); Calcium 8.1 mg/dL (8.4-10.2); Hemolysis Index 0
[2019-01-12 06:24] LABS: Basophils % (Manual) 0 % (0.0-1.8); Eosinophils % (Manual) 0 % (0.0-4.3); Total Cells Counted 100
[2019-01-12 06:25] LABS: Anisocytosis 1+; Hypochromasia 2+; Platelet Estimate Consistent w Auto
[2019-01-12] MEDS ORDERED: NACL 0.9% 1000 ML 1,000 ML IV SCH (09:00)
--- NOTE | 2019-01-12 09:14 | Progress Note ---
Assessment and Plan - Patient Problems (1) Abdominal pain Current Visit: Yes Status: Acute Qualifiers: Abdominal location: right upper quadrant Qualified Code(s): R10.11 - Right upper quadrant pain Plan to address problem: Pt stable. Pt is much improved. Appreciate GI consult and making arrangements for c-scope today. Will f/u on results. Please call with questions. time=10min Subjective Date of service: 01/12/19 Patient Reports: Positive: no new complaints, feels better, pain is less Objective Vital Signs - 12hr 01/11/19 01/11/19 01/12/19 22:00 22:41 04:52 Temperature 100.4 F H 101.3 F H Pulse Rate 107 H 108 H Respiratory 16 24 20 Rate Blood Pressure 122/74 125/70 O2 Sat by Pulse 100 100 Oximetry 01/12/19 01/12/19 05:27 06:27 Temperature 98.6 F Pulse Rate Respiratory 17 16 Rate Blood Pressure O2 Sat by Pulse Oximetry - General physical appearance no distress, no pain - Eyes normal occular movement - Respiratory normal expansion, normal respiratory effort - Abdomen soft, not tender, masses, not rebound, not guarding, not rigid - Integumentary no rash, no growths, no abnormal pigmentation - Psychiatric oriented to time, oriented to person, oriented to place, speech is normal, memory intact - Labs 01/12/19 04:49 01/12/19 04:49 Diabetes panel 01/12/19 Range/Units 04:49 Sodium 139 (137-145) mmol/L Potassium 3.5 L D (3.6-5.0) mmol/L Chloride 105.6 (98-107) mmol/L Carbon Dioxide 16 L (22-30) mmol/L BUN 5 L (9-20) mg/dL Creatinine 0.8 (0.8-1.5) mg/dL Glucose 88 (75-100) mg/dL Calcium 8.1 L (8.4-10.2) mg/dL AST 15 (5-40) units/L ALT 8 (7-56) units/L Alkaline Phosphatase 80 (35-129) units/L Total Protein 6.8 D (6.3-8.2) g/dL Albumin 2.3 L (3.9-5) g/dL Calcium panel 01/12/19 Range/Units 04:49 Calcium 8.1 L (8.4-10.2) mg/dL Albumin 2.3 L (3.9-5) g/dL Pituitary panel 01/12/19 Range/Units 04:49 Sodium 139 (137-145) mmol/L Potassium 3.5 L D (3.6-5.0) mmol/L Chloride 105.6 (98-107) mmol/L Carbon Dioxide 16 L (22-30) mmol/L BUN 5 L (9-20) mg/dL Creatinine 0.8 (0.8-1.5) mg/dL Glucose 88 (75-100) mg/dL Calcium 8.1 L (8.4-10.2) mg/dL Adrenal panel 01/12/19 Range/Units 04:49 Sodium 139 (137-145) mmol/L Potassium 3.5 L D (3.6-5.0) mmol/L Chloride 105.6 (98-107) mmol/L Carbon Dioxide 16 L (22-30) mmol/L BUN 5 L (9-20) mg/dL Creatinine 0.8 (0.8-1.5) mg/dL Glucose 88 (75-100) mg/dL Calcium 8.1 L (8.4-10.2) mg/dL Total Bilirubin 0.40 (0.1-1.2) mg/dL AST 15 (5-40) units/L ALT 8 (7-56) units/L Alkaline Phosphatase 80 (35-129) units/L Total Protein 6.8 D (6.3-8.2) g/dL Albumin 2.3 L (3.9-5) g/dL
[2019-01-12] MEDS: LEVAQUIN 750MG/150ML 750 MG/150 ML BAG IV SCH (10:00)
[2019-01-12] MEDS ORDERED: WATER FOR IRRIG STERILE IR ONE (10:49)
[2019-01-12] MEDS ORDERED: WATER FOR IRRIG STERILE ONE (10:49)
--- NOTE | 2019-01-12 11:44 | Anesthesia Day of Surgery ---
Anesthesia Day of Surgery - Day of Surgery Patient Examined: Yes Patient H&P Reviewed: Yes Patient is NPO: Yes
--- NOTE | 2019-01-12 11:44 | Anesthesia Consultation ---
Anesthesia Consult and Med Hx Date of service: 01/12/19 - Airway Anesthetic Teeth Evaluation: Chipped (#8-9 are chipped) ROM Head & Neck: Adequate Mental/Hyoid Distance: Adequate Mallampati Class: Class I Intubation Access Assessment: Good - Pre-Operative Health Status ASA Pre-Surgery Classification: ASA2 Proposed Anesthetic Plan: MAC - Pulmonary Hx Asthma: No COPD: No Hx Pneumonia: No - Central Nervous System Hx Psychiatric Problems: No - Gastrointestinal Hx Gastroesophageal Reflux Disease: No (abdominal pain, N/V) - Endocrine Hx End Stage Renal Disease: No - Hematic Hx Anemia: No Hx Sickle Cell Disease: No - Other Systems Hx Cancer: No Hx Obesity: No (recent weight loss)
[2019-01-12] MEDS ORDERED: AFLURIA QUAD 2019-2020 (3YR UP) IM ONE (12:00)
[2019-01-12] MEDS ORDERED: DIPRIVAN 10 MG/ML IV ONE (12:42)
--- NOTE | 2019-01-12 13:22 | Post Operative Note ---
Pre-op diagnosis: abdominal pain Post-op diagnosis: same Findings: Colon: significant edematous mucosa w/ mild inflammation noted proximal to mid transverse colon w/o obvious mass (bx's) - internal hemorrhoids - negative other Procedure: colonoscopy Anesthesia: MAC Surgeon: ISAAC FOX Estimated blood loss: none Pathology: list Specimen disposition: to lab Condition: stable Disposition: floor
--- NOTE | 2019-01-12 13:54 | Progress Note ---
Assessment and Plan Assessment and plan: Patient is a 58 yo AA man without any known chronic medical problems who presents to [facility] ED with abd pains. He was found to colon mass or abscess or mass causing abscess. * CT abd/pelvis with contrast IMPRESSION: 1. There is severe inflammatory process which involves the proximal transverse colon. This is concerning for primary colonic carcinoma with phlegmon versus early abscess. The pericolonic collection which may be intramural is difficult to measure given its serpiginous nature but measures approximately 6 x 6 cm on axial image 79 of series 2. There is secondary inflammation of the duodenum, pancreas, and gallbladder which are all in this area. Mesenteric and retroperitoneal nodes could be metastatic or reactive. This could be secondary to an inflammatory process; however, I do not see significant diverticulosis and the remainder of the colon as well as the appendix are normal. Surgical consultation is needed. There is no colonic obstruction at this time. There is trace free fluid in the pelvis. No free air is seen. No gas is seen within the pericolonic collection. 2. Prostate is enlarged with probable mild chronic outlet obstruction. Suspected Colon cancer with abscess vs mets: treat with IV abx, consulted GI, bowel rest, pain control, IVFs Sepsis with suspected colonic abscess: GS to evaluate Microcytic anemia most likely related to the above: monitor cbc closely Hyponatremia, hypovolemia: treat with IVFs History Interval history: Patient was seen and examined. Follow-up on current diagnosis abd pains. No overnight events reported to me. Patient denies any chest pain, shortness breath, nausea/vomiting or severe headaches. Imaging, nursing note, chart, labs and old chart reviewed. Discussed with patient. Hospitalist Physical - Physical exam Narrative exam: Gen: WDWN, NAD, Awake, Alert, Orientated HEENT: NCAT, EOMI, PERRL, OP Clear Neck: supple, no adenopathy, no thyromegaly, no JVD CVS/Heart: regular tachycardia, normal S1S2, pulses present bilaterally Chest/Lungs: CTA B, Symmetrical chest expansion, good air entry bilaterally GI/Abdomen: diffuse abd tenderness, good bowel sounds, no rebound /Bladder: no suprapubic tenderness, no CVA or paraspinal tenderness Extermity/Skin: no c/c/e, no obvious rash MSK: FROM x 4 Neuro: CN 2-12 grossly intact, no new focal deficits Psych: calm - Constitutional Vitals: Temp Pulse Resp BP Pulse Ox 98.8 F 94 H 16 90/56 100 01/12/19 13:03 01/12/19 13:03 01/12/19 13:03 01/12/19 13:03 01/12/19 13:03 Results - Labs CBC & Chem 7: 01/12/19 04:49 01/12/19 04:49 Labs: Laboratory Last Values WBC 20.6 K/mm3 (4.5-11.0) H 01/12/19 04:49 RBC 3.91 M/mm3 (3.65-5.03) 01/12/19 04:49 Hgb 8.7 gm/dl (11.8-15.2) L 01/12/19 04:49 Hct 28.7 % (35.5-45.6) L 01/12/19 04:49 MCV 73 fl (84-94) L 01/12/19 04:49 MCH 22 pg (28-32) L 01/12/19 04:49 MCHC 30 % (32-34) L 01/12/19 04:49 RDW 21.3 % (13.2-15.2) H 01/12/19 04:49 Plt Count 484 K/mm3 (140-440) H 01/12/19 04:49 Lymph % (Auto) Security Systems Administrator 01/10/19 18:51 Sterling % (Auto) Security Systems Administrator 01/10/19 18:51 Eos % (Auto) Security Systems Administrator 01/10/19 18:51 Baso % (Auto) Security Systems Administrator 01/10/19 18:51 Lymph # Security Systems Administrator 01/10/19 18:51 Sterling # Security Systems Administrator 01/10/19 18:51 Eos # Security Systems Administrator 01/10/19 18:51 Baso # Security Systems Administrator 01/10/19 18:51 Add Manual Diff Complete 01/12/19 04:49 Total Counted 100 01/12/19 04:49 Seg Neutrophils % Security Systems Administrator 01/10/19 18:51 Seg Neuts % (Manual) 96.0 % (40.0-70.0) H 01/12/19 04:49 Band Neutrophils % 0 % 01/12/19 04:49 Lymphocytes % (Manual) 2.0 % (13.4-35.0) L 01/12/19 04:49 Reactive Lymphs % (Man) 0 % 01/12/19 04:49 Monocytes % (Manual) 2.0 % (0.0-7.3) 01/12/19 04:49 Eosinophils % (Manual) 0 % (0.0-4.3) 01/12/19 04:49 Basophils % (Manual) 0 % (0.0-1.8) 01/12/19 04:49 Metamyelocytes % 0 % 01/12/19 04:49 Myelocytes % 0 % 01/12/19 04:49 Promyelocytes % 0 % 01/12/19 04:49 Blast Cells % 0 % 01/12/19 04:49 Nucleated RBC % Not Reportable 01/12/19 04:49 Seg Neutrophils # Security Systems Administrator 01/10/19 18:51 Seg Neutrophils # Man 19.8 K/mm3 (1.8-7.7) H 01/12/19 04:49 Band Neutrophils # 0.0 K/mm3 01/12/19 04:49 Lymphocytes # (Manual) 0.4 K/mm3 (1.2-5.4) L 01/12/19 04:49 Abs React Lymphs (Man) 0.0 K/mm3 01/12/19 04:49 Monocytes # (Manual) 0.4 K/mm3 (0.0-0.8) 01/12/19 04:49 Eosinophils # (Manual) 0.0 K/mm3 (0.0-0.4) 01/12/19 04:49 Basophils # (Manual) 0.0 K/mm3 (0.0-0.1) 01/12/19 04:49 Metamyelocytes # 0.0 K/mm3 01/12/19 04:49 Myelocytes # 0.0 K/mm3 01/12/19 04:49 Promyelocytes # 0.0 K/mm3 01/12/19 04:49 Blast Cells # 0.0 K/mm3 01/12/19 04:49 WBC Morphology Not Reportable 01/12/19 04:49 Hypersegmented Neuts Not Reportable 01/12/19 04:49 Hyposegmented Neuts Not Reportable 01/12/19 04:49 Hypogranular Neuts Not Reportable 01/12/19 04:49 Smudge Cells Not Reportable 01/12/19 04:49 Toxic Granulation Not Reportable 01/12/19 04:49 Toxic Vacuolation Not Reportable 01/12/19 04:49 Dohle Bodies Not Reportable 01/12/19 04:49 Pelger-Huet Anomaly Not Reportable 01/12/19 04:49 Angela Rods Not Reportable 01/12/19 04:49 Platelet Estimate Consistent w auto 01/12/19 04:49 Clumped Platelets Not Reportable 01/12/19 04:49 Plt Clumps, EDTA Not Reportable 01/12/19 04:49 Large Platelets Not Reportable 01/12/19 04:49 Giant Platelets Not Reportable 01/12/19 04:49 Platelet Satelliting Not Reportable 01/12/19 04:49 Plt Morphology Comment Not Reportable 01/12/19 04:49 RBC Morphology Not Reportable 01/12/19 04:49 Dimorphic RBCs Not Reportable 01/12/19 04:49 Polychromasia Not Reportable 01/12/19 04:49 Hypochromasia 2+ 01/12/19 04:49 Poikilocytosis Not Reportable 01/12/19 04:49 Anisocytosis 1+ 01/12/19 04:49 Microcytosis Not Reportable 01/12/19 04:49 Macrocytosis Not Reportable 01/12/19 04:49 Spherocytes Not Reportable 01/12/19 04:49 Pappenheimer Bodies Not Reportable 01/12/19 04:49 Sickle Cells Not Reportable 01/12/19 04:49 Target Cells Not Reportable 01/12/19 04:49 Tear Drop Cells Not Reportable 01/12/19 04:49 Ovalocytes Not Reportable 01/12/19 04:49 Helmet Cells Not Reportable 01/12/19 04:49 [place] Bodies Not Reportable 01/12/19 04:49 Frederick Rings Not Reportable 01/12/19 04:49 [place] Cells Not Reportable 01/12/19 04:49 Bite Cells Not Reportable 01/12/19 04:49 Crenated Cell Not Reportable 01/12/19 04:49 Elliptocytes Not Reportable 01/12/19 04:49 Acanthocytes (Spur) Not Reportable 01/12/19 04:49 Rouleaux Not Reportable 01/12/19 04:49 Hemoglobin C Crystals Not Reportable 01/12/19 04:49 Schistocytes Not Reportable 01/12/19 04:49 Malaria parasites Not Reportable 01/12/19 04:49 Gonzalo Bodies Not Reportable 01/12/19 04:49 Hem Pathologist Commnt No 01/12/19 04:49 Sodium 139 mmol/L (137-145) 01/12/19 04:49 Potassium 3.5 mmol/L (3.6-5.0) L D 01/12/19 04:49 Chloride 105.6 mmol/L (98-107) 01/12/19 04:49 Carbon Dioxide 16 mmol/L (22-30) L 01/12/19 04:49 Anion Gap 21 mmol/L 01/12/19 04:49 BUN 5 mg/dL (9-20) L 01/12/19 04:49 Creatinine 0.8 mg/dL (0.8-1.5) 01/12/19 04:49 Estimated GFR > 60 ml/min 01/12/19 04:49 BUN/Creatinine Ratio 6 % 01/12/19 04:49 Glucose 88 mg/dL (75-100) 01/12/19 04:49 Calcium 8.1 mg/dL (8.4-10.2) L 01/12/19 04:49 Total Bilirubin 0.40 mg/dL (0.1-1.2) 01/12/19 04:49 AST 15 units/L (5-40) 01/12/19 04:49 ALT 8 units/L (7-56) 01/12/19 04:49 Alkaline Phosphatase 80 units/L (35-129) 01/12/19 04:49 Total Protein 6.8 g/dL (6.3-8.2) D 01/12/19 04:49 Albumin 2.3 g/dL (3.9-5) L 01/12/19 04:49 Albumin/Globulin Ratio 0.5 % 01/12/19 04:49 Lipase 17 units/L (13-60) 01/10/19 18:51 Urine Color Sybil (Yellow) 01/10/19 Unknown Urine Turbidity Slightly-cloudy (Clear) 01/10/19 Unknown Urine pH 5.0 (5.0-7.0) 01/10/19 Unknown Ur Specific [place] 1.021 (1.003-1.030) 01/10/19 Unknown Urine Protein 30 mg/dl mg/dL (Negative) 01/10/19 Unknown Urine Glucose (UA) Neg mg/dL (Negative) 01/10/19 Unknown Urine Ketones 20 mg/dL (Negative) 01/10/19 Unknown Urine Blood Neg (Negative) 01/10/19 Unknown Urine Nitrite Neg (Negative) 01/10/19 Unknown Urine Bilirubin Neg (Negative) 01/10/19 Unknown Urine Urobilinogen < 2.0 mg/dL (<2.0) 01/10/19 Unknown Ur Leukocyte Esterase Neg (Negative) 01/10/19 Unknown Urine WBC (Auto) 3.0 /HPF (0.0-6.0) 01/10/19 Unknown Urine RBC (Auto) 2.0 /HPF (0.0-6.0) 01/10/19 Unknown Urine Mucus 1+ /HPF 01/10/19 Unknown Active Medications - Current Medications Current Medications: Generic Name Dose Route Start Last Admin Trade Name Freq PRN Reason Stop Dose Admin Acetaminophen 650 mg 01/10/19 23:16 01/12/19 05:27 Tylenol NV 650 mg Q4H PRN Administration Fever >101 Piperacillin Sod/Tazobactam Sod 3.375 gm in 50 mls @ 100 mls/hr 01/11/19 06:00 01/12/19 05:27 Zosyn/Ns 3.375gm/50ml IV 100 mls/hr Q8HR ALPESH Administration Protocol Metronidazole 500 mg in 100 mls @ 100 mls/hr 01/10/19 23:45 01/12/19 05:27 Flagyl 500 Mg/100 Ml IV 100 mls/hr Q8HR ALPESH Administration Protocol Levofloxacin/Dextrose 750 mg in 150 mls @ 100 mls/hr 01/11/19 10:00 01/12/19 10:00 Levaquin 750mg/150ml IV 100 mls/hr Q24HR ALPESH Administration Protocol Sodium Chloride 1,000 mls @ 150 mls/hr 01/11/19 05:00 01/12/19 10:43 Nacl 0.9% 1000 Ml IV 150 mls/hr DIRECT ALPESH Administration Sodium Chloride 1,000 mls @ 0 mls/hr 01/11/19 21:09 Nacl 0.9% 1000 Ml IV 01/12/19 21:10 ONCE ALPESH As Directed Sodium Chloride 1,000 mls @ 50 mls/hr 01/12/19 09:00 01/12/19 11:49 Nacl 0.9% 1000 Ml IV 50 mls/hr DIRECT ALPESH Administration Morphine Sulfate 2 mg 01/10/19 23:16 01/11/19 10:26 Morphine IV 2 mg Q4H PRN Administration Pain, Moderate (4-6) Ondansetron HCl 4 mg 01/10/19 23:12 Zofran IV Q8H PRN Nausea And Vomiting Nutrition/Malnutrition Assess - Dietary Evaluation Nutrition/Malnutrition Findings: Nutrition Notes Start: 01/12/19 12:33 Freq: Status: Active Protocol: Document 01/12/19 12:33 CURRY (Rec: 01/12/19 12:38 CURRY [id number] [email or web address]) Nutrition Notes Need for Assessment generated from: routeman,MST Initial or Follow up Brief Note Current Diagnosis Sepsis Other Pertinent Diagnosis Intraabdominal abscess vs colon malignancy Current Diet NPO Labs/Tests K 3.5 Pertinent Medications Reviewed Height 5 ft 6 in Weight 63.503 kg [place] Body Weight (kg) 64.54 BMI 22.6 Weight Status Appropriate Subjective/Other Information Pt screened for malnutrition risk (wt loss, poor appetite). He is not in room at time of visit (11:32); scheduled for colonoscopy today. Burn Absent Trauma Absent Is patient on ventilator? No Is Patient Ambulatory and/or Out of Bed Yes REE-([facility]-ambulatory/OOB) [ 1823.614 [id number]] Calculation Used for Recommendations [facility] Additional Notes Pro needs 0.8-1g/k-64g/ day Fluid needs 1ml/kcal Nutrition Intervention Follow-Up By: 01/13/19 Additional Comments F/U: diet advancement, MST assessment
--- NOTE | 2019-01-12 13:56 | Operative Report ---
PROCEDURE: Colonoscopy with cold biopsies INDICATIONS: 1. Abdominal pain. 2. Weight loss. 3. Abnormal CT scan. MEDICATIONS: Propofol per ELECTRIC MOTOR REPAIRER. COMPLICATIONS: None. DESCRIPTION OF PROCEDURE: The patient was brought to the procedure suite. The patient had the procedure discussed with him at length. All risks, complications, and benefits were discussed, after which the patient signed for the procedure performed. The patient was placed in left lateral decubitus position. Rectal exam performed prior to insertion of the scope. After adequate sedation medication as above, scope was introduced into the rectum and brought to level of cecum. Ileocecal valve and appendiceal orifice, cecal strap were adequately visualized. Colonoscope was then removed and mucosa of colon visualized. Prep quality for this procedure was fair. The patient's vital signs remained stable throughout the procedure. FINDINGS: There were no mass lesions or polyps noted during this procedure. There was noted to be very edematous mucosa noted in the proximal to mid transverse colon. This was very edematous with mild inflammation. No obvious mass lesions or polyps were noted in that area or anywhere else in the colon. Random biopsies were taken of this abnormal area and sent to pathology. Again, no mass lesions or polyps were noted. No diverticulosis was noted. Retroflexion view performed in the rectum showed small to medium internal hemorrhoids. The patient tolerated the procedure well. No complications during the procedure. IMPRESSION: 1. Edematous mucosa with mild inflammation noted in transverse colon with biopsies performed. 2. Internal hemorrhoids. 3. Otherwise, normal colonoscopy. RECOMMENDATIONS: 1. Follow up biopsy results. 2. Continue IV antibiotics. 3. Start clear liquid diet. 4. Await further surgical input. 5. We will follow for now. JOB# [id number] CAB/NTS
--- NOTE | 2019-01-12 15:58 | Consultation ---
History of Present Illness - Reason for Consult Consult date: 01/12/19 Colonic sepsis Requesting physician: ZARA BAZAN - History of Present Illness The patient is a 58-year-old male who has no significant past medical history, does not regularly see a physician presented to the hospital emergency room on 01/10/2019 with complaints of abdominal pain, nausea, vomiting. Was also associated with about a 5-6 pound weight loss over the last [address] abdomen and pelvis on admission was concerning for possible colonic mass v/s phlegmon/abscess. General surgery and GI were consulted. Today, he underwent a colonoscopy which showed significant edematous mucosa without any obvious mass. Infectious diseases was consulted for antibiotic recommendations. He is currently on Zosyn, levofloxacin and Flagyl. He is originally from [place], moved here about 30 years ago. States that during immigration, his latent TB screen was negative. Review of Systems: General: no fevers,chills or rigors HEENT: no new visual disturbance Respiratory: No cough, sputum, hemoptysis or shortness of breath Cardiovascular: No chest pain, syncope Gastrointestinal: No nausea, vomiting or diarrhea Genitourinary: No dysuria or hematuria Musculoskeletal: No new or worsening neck pain or back pain Neurologic: No headaches, seizures Hematologic: No easy bruising or bleeding Endocrine: No night sweats . + for acute weight loss Skin: negative for rash, jaundice Psychiatric: No suicidal or homicidal ideation Past History Past Medical History: No medical history Past Surgical History: No surgical history Social history: denies: smoking, alcohol abuse Family history: cancer (mother - colon in her 70s) Medications and Allergies Allergies Allergy/AdvReac Type Severity Reaction Status Date / Time quinine Allergy Rash Verified 05/27/13 13:53 Home Medications Medication Instructions Recorded Confirmed Last Taken Type No Known Home Medications [No 01/11/19 01/11/19 Unknown History Reported Home Medications] Active Meds: Active Medications Acetaminophen (Tylenol) 650 mg SC Q4H PRN PRN Reason: Fever >101 Last Admin: 01/12/19 05:27 Dose: 650 mg Documented by: Sodium Chloride (Nacl 0.9% 1000 Ml) 1,000 mls @ 150 mls/hr IV DIRECT ALPESH Last Admin: 01/12/19 10:43 Dose: 150 mls/hr Documented by: Sodium Chloride (Nacl 0.9% 1000 Ml) 1,000 mls @ 0 mls/hr IV ONCE ALPESH Stop: 01/12/19 21:10 Sodium Chloride (Nacl 0.9% 1000 Ml) 1,000 mls @ 50 mls/hr IV DIRECT ALPESH Last Admin: 01/12/19 11:49 Dose: 50 mls/hr Documented by: Piperacillin Sod/Tazobactam Sod (Zosyn/Ns 3.375gm/50ml) 3.375 gm in 50 mls @ 100 mls/hr IV Q6HR ALPESH; Protocol Morphine Sulfate (Morphine) 2 mg IV Q4H PRN PRN Reason: Pain, Moderate (4-6) Last Admin: 01/11/19 10:26 Dose: 2 mg Documented by: Ondansetron HCl (Zofran) 4 mg IV Q8H PRN PRN Reason: Nausea And Vomiting Physical Examination - Physical Exam Narrative exam: Physical Exam: Constitutional: Alert, cooperative. No acute distress Head, Ears, Nose: Normocephalic, atraumatic. External ears, nose normal Eyes: Conjunctivae/corneas clear. No icterus. No ptosis. Neck: Supple, no meningeal signs Cardiovascular: S1, S2 normal. Respiratory: Good air entry, clear to auscultation bilaterally GI: Soft, RUQ fullness and slight bulge, mild tenderness; bowel sounds normal. No peritoneal signs Musculoskeletal: No pedal edema, no cyanosis. Skin: No rash or abscess Hem/Lymphatic: No palpable cervical or supraclavicular nodes. No lymphangitis Psych: Mood ok. Affect normal Neurological: Awake, alert, oriented. No gross abnormality - Constitutional Vitals: Vital Signs Temp Pulse Resp BP Pulse Ox 98.8 F 99 H 15 118/63 100 01/12/19 14:26 01/12/19 14:26 01/12/19 14:26 01/12/19 14:26 01/12/19 14:26 Temperature -Last 24 Hours Temperature 98.8 F Temperature 98.8 F Temperature 98.7 F Temperature 98.7 F Temperature 98.6 F Temperature 101.3 F Temperature 100.4 F Temperature 100.2 F Results - Labs CBC & Chem 7: 01/12/19 04:49 01/12/19 04:49 Labs: Abnormal lab results 01/12/19 01/12/19 Range/Units 04:49 04:49 WBC 20.6 H (4.5-11.0) K/mm3 Hgb 8.7 L (11.8-15.2) gm/dl Hct 28.7 L (35.5-45.6) % MCV 73 L (84-94) fl MCH 22 L (28-32) pg MCHC 30 L (32-34) % RDW 21.3 H (13.2-15.2) % Plt Count 484 H (140-440) K/mm3 Seg Neuts % (Manual) 96.0 H (40.0-70.0) % Lymphocytes % (Manual) 2.0 L (13.4-35.0) % Seg Neutrophils # Man 19.8 H (1.8-7.7) K/mm3 Lymphocytes # (Manual) 0.4 L (1.2-5.4) K/mm3 Potassium 3.5 L D (3.6-5.0) mmol/L Carbon Dioxide 16 L (22-30) mmol/L BUN 5 L (9-20) mg/dL Calcium 8.1 L (8.4-10.2) mg/dL Albumin 2.3 L (3.9-5) g/dL - Imaging and Cardiology CT scan - abdomen: report reviewed, image reviewed (mass v/s phlegmon/abscess involving the proximal transverse colon) Assessment and Plan Cultures: 01/10/2019 blood culture: No growth A/P: 58-year-old male who has no significant past medical history admitted with: 1) Intra-abdominal mass v/s phlegmon/abscess involving the proximal transverse colon: colonoscopy which showed significant edematous mucosa without any obvious mass. Does have significant leucocytosis. Very atypical presentation for an isolated infectious process if no malignancy, especially given no perforation/diverticular disease as well as the location. Tissue diagnosis would definitely be helpful. He is originally from [place], moved here about 30 years ago. States that during immigration, his latent TB screen was negative. Recs: Levofloxacin and Flagyl discontinued Zosyn dose increased Follow-up general surgery recommendations. Very atypical presentation for an isolated infectious process if no malignancy, especially given no perforation /diverticular disease as well as the location TB Quantiferon Gold ordered (isolation not required, has no respiratory symptoms) CXR ordered Tang Valdez MD, FACP [facility] ([facility] C: [phone] O: [phone] F: [phone]
--- NOTE | 2019-01-12 17:14 | XRay Report ---
CHEST 2 VIEWS INDICATION: weight loss, sob. COMPARISON: None. FINDINGS: Support devices: None. Heart: Within normal limits. Lungs/Pleura: No acute air space or interstitial disease. No significant pleural effusion. IMPRESSION: No acute findings. Signer Name: Rudolph Nuno MD Signed: 01/12/2019 5:09 PM Workstation Name: [id number]
[2019-01-13] MEDS: ZOSYN/NS 3.375GM/50ML 3.375 GM/50 ML BAG IV SCH ×5 (00:19→23:28)
[2019-01-13] MEDS: NACL 0.9% 1000 ML 1,000 ML IV SCH ×2 (04:48→11:37)
[2019-01-13 05:45] LABS: Hematocrit 28.1 % (35.5-45.6); Hemoglobin 8.4 gm/dl (11.8-15.2); Mean Corpuscular HGB Conc 30 % (32-34); Mean Corpuscular Volume 73 fl (84-94); Platelet Count 469 K/mm3 (140-440); Red Blood Count 3.84 M/mm3 (3.65-5.03)
[2019-01-13 05:46] LABS: Red Cell Distribution Width 20.9 % (13.2-15.2)
[2019-01-13 06:07] LABS: BUN/Creatinine Ratio 4; Blood Urea Nitrogen 3 mg/dL (9-20); Calcium 7.7 mg/dL (8.4-10.2); Hemolysis Index 1
--- NOTE | 2019-01-13 09:43 | Progress Note ---
Assessment and Plan - Patient Problems (1) Abdominal pain Current Visit: Yes Status: Acute Qualifiers: Abdominal location: right upper quadrant Qualified Code(s): R10.11 - Right upper quadrant pain Plan to address problem: Pt stable. Pt continues to improve. Appreciate GI help with C-scope yesterday. Will f/u on bx results. In the mean time, will obtain new CT with IV and PO contrast to hopefully better evaluate the transverse colon. May resume diet after CT. Please do not advance beyond full liquid diet until decision is made about surgery. Please call with questions. time=10min Subjective Date of service: 01/13/19 Patient Reports: Positive: no new complaints, pain is less, bowel movement. Negative: nausea, vomiting Objective Vital Signs - 12hr 01/13/19 04:47 Temperature 99.0 F Respiratory 16 Rate Blood Pressure 116/68 - General physical appearance no distress, no pain, other (looks better. ambulating in room) - Eyes normal occular movement - Respiratory normal expansion, normal respiratory effort - Abdomen soft, not tender, not distended, masses, not guarding, not rigid - Integumentary no rash, no growths, no abnormal pigmentation - Psychiatric oriented to time, oriented to person, oriented to place, speech is normal, memory intact - Labs 01/13/19 05:04 01/13/19 05:04 Diabetes panel 01/13/19 Range/Units 05:04 Sodium 137 (137-145) mmol/L Potassium 3.2 L (3.6-5.0) mmol/L Chloride 107.0 (98-107) mmol/L Carbon Dioxide 17 L (22-30) mmol/L BUN 3 L (9-20) mg/dL Creatinine 0.7 L (0.8-1.5) mg/dL Glucose 101 H (75-100) mg/dL Calcium 7.7 L (8.4-10.2) mg/dL Calcium panel 01/13/19 Range/Units 05:04 Calcium 7.7 L (8.4-10.2) mg/dL Pituitary panel 01/13/19 Range/Units 05:04 Sodium 137 (137-145) mmol/L Potassium 3.2 L (3.6-5.0) mmol/L Chloride 107.0 (98-107) mmol/L Carbon Dioxide 17 L (22-30) mmol/L BUN 3 L (9-20) mg/dL Creatinine 0.7 L (0.8-1.5) mg/dL Glucose 101 H (75-100) mg/dL Calcium 7.7 L (8.4-10.2) mg/dL Adrenal panel 01/13/19 Range/Units 05:04 Sodium 137 (137-145) mmol/L Potassium 3.2 L (3.6-5.0) mmol/L Chloride 107.0 (98-107) mmol/L Carbon Dioxide 17 L (22-30) mmol/L BUN 3 L (9-20) mg/dL Creatinine 0.7 L (0.8-1.5) mg/dL Glucose 101 H (75-100) mg/dL Calcium 7.7 L (8.4-10.2) mg/dL
--- NOTE | 2019-01-13 11:15 | Gastroenterology Progress Note ---
<NATALIYA GRAY - Last Filed: 01/13/19 11:20> Assessment and Plan 1.abdominal pain 2.abnormal CT -CT concerning for malignancy (vs phlegmon/abscess)- +family h/o colon CA and anemic -s/p colonoscopy yesterday that showed significant edematous mucosa w/ mild inflammation noted proximal to mid transverse colon w/o obvious mass and internal hemorrhoids -bx results benign (negative for malignancy) -clinically, patient reports feeling better with abd pain improving. +BM. No N/v. -continue antibiotics per ID recommendations and supportive care -repeat CT pending per surgery recommendations for further evaluation prior to making decision on surgery -no further GI recommendations at this time, will sign off and defer further man agement to surgery -please call if needed Subjective Date of service: 01/13/19 Principal diagnosis: abnormal CT Interval history: No acute distress. Reports feeling better with abd pain improved. No N/V. Objective - Constitutional Vitals: Temp Pulse Resp BP Pulse Ox 99.0 F 103 H 16 116/68 100 01/13/19 04:47 01/12/19 21:32 01/13/19 04:47 01/13/19 04:47 01/12/19 21:32 General appearance: no acute distress - Respiratory Respiratory effort: normal - Cardiovascular Rhythm: regular - Gastrointestinal General gastrointestinal: Present: soft, non-tender, non-distended, normal bowel sounds - Neurologic Neurological: alert and oriented x3 - Labs CBC & Chem 7: 01/13/19 05:04 01/13/19 05:04 Labs: Laboratory Results - last 24 hr 01/13/19 01/13/19 05:04 05:04 WBC 17.6 H RBC 3.84 Hgb 8.4 L Hct 28.1 L MCV 73 L MCH 22 L MCHC 30 L RDW 20.9 H Plt Count 469 H Sodium 137 Potassium 3.2 L Chloride 107.0 Carbon Dioxide 17 L Anion Gap 16 BUN 3 L Creatinine 0.7 L Estimated GFR > 60 BUN/Creatinine Ratio 4 Glucose 101 H Calcium 7.7 L <ISAAC FOX - Last Filed: 01/13/19 20:58> Assessment and Plan pt seen and examine, chart reviewed, consult below reviewed - pt presents w/ abdominal pain w/ ct scan raising possible IBD vss p.e.: nad abd: soft - management as outlined - will need colonoscopy in future - will follow Objective - Constitutional Vitals: Temp Pulse Resp BP Pulse Ox 100.0 F H 94 H 20 103/65 100 01/13/19 17:57 01/13/19 17:57 01/13/19 17:57 01/13/19 17:57 01/13/19 17:57 - Labs CBC & Chem 7: 01/13/19 05:04 01/13/19 05:04 Labs: Laboratory Results - last 24 hr 01/13/19 01/13/19 05:04 05:04 WBC 17.6 H RBC 3.84 Hgb 8.4 L Hct 28.1 L MCV 73 L MCH 22 L MCHC 30 L RDW 20.9 H Plt Count 469 H Sodium 137 Potassium 3.2 L Chloride 107.0 Carbon Dioxide 17 L Anion Gap 16 BUN 3 L Creatinine 0.7 L Estimated GFR > 60 BUN/Creatinine Ratio 4 Glucose 101 H Calcium 7.7 L
--- NOTE | 2019-01-13 13:59 | Progress Note ---
Assessment and Plan Cultures: 01/10/2019 blood culture: No growth A/P: 58-year-old male who has no significant past medical history admitted with: 1) Intra-abdominal mass v/s phlegmon/abscess involving the proximal transverse colon: colonoscopy which showed significant edematous mucosa without any obvious mass. Does have significant leucocytosis. Very atypical presentation for an isolated infectious process if no malignancy, especially given no perforation/diverticular disease as well as the location. Tissue diagnosis would definitely be helpful. He is originally from [place], moved here about 30 years ago. States that during immigration, his latent TB screen was negative. Recs: Follow up repeat CT results continue IV Zosyn f/U TB Quantiferon Gold ordered (isolation not required, has no respiratory symptoms and negative CXR) Tang Valdez MD, FACP [facility] ([facility]) C: [phone] O: [phone] F: [phone] Subjective Date of service: 01/13/19 Principal diagnosis: abnormal CT Interval history: Low grade fever. Abdominal pain well controlled. Objective - Exam Narrative Exam: Physical Exam: Constitutional: Alert, cooperative. No acute distress Head, Ears, Nose: Normocephalic, atraumatic. External ears, nose normal Eyes: Conjunctivae/corneas clear. No icterus. No ptosis. Neck: Supple, no meningeal signs Cardiovascular: S1, S2 normal. Respiratory: Good air entry, clear to auscultation bilaterally GI: Soft, RUQ fullness and slight bulge, mild tenderness; bowel sounds normal. No peritoneal signs Musculoskeletal: No pedal edema, no cyanosis. Skin: No rash or abscess Hem/Lymphatic: No palpable cervical or supraclavicular nodes. No lymphangitis Psych: Mood ok. Affect normal Neurological: Awake, alert, oriented. No gross abnormality - Constitutional Vitals: Vital Signs Temp Pulse Resp BP Pulse Ox 100.9 F H 94 H 20 105/61 99 01/13/19 11:52 01/13/19 11:52 01/13/19 11:52 01/13/19 11:52 01/13/19 11:52 Temperature -Last 24 Hours Temperature 100.9 F Temperature 99.0 F Temperature 99.6 F Temperature 98.8 F - Labs CBC & Chem 7: 01/13/19 05:04 01/13/19 05:04 Labs: Abnormal lab results 01/13/19 01/13/19 Range/Units 05:04 05:04 WBC 17.6 H (4.5-11.0) K/mm3 Hgb 8.4 L (11.8-15.2) gm/dl Hct 28.1 L (35.5-45.6) % MCV 73 L (84-94) fl MCH 22 L (28-32) pg MCHC 30 L (32-34) % RDW 20.9 H (13.2-15.2) % Plt Count 469 H (140-440) K/mm3 Potassium 3.2 L (3.6-5.0) mmol/L Carbon Dioxide 17 L (22-30) mmol/L BUN 3 L (9-20) mg/dL Creatinine 0.7 L (0.8-1.5) mg/dL Glucose 101 H (75-100) mg/dL Calcium 7.7 L (8.4-10.2) mg/dL - Imaging and cardiology Chest x-ray: report reviewed, image reviewed (no pneumonia.)
--- NOTE | 2019-01-13 14:01 | Cat Scan Report ---
CT ABDOMEN AND PELVIS WITH CONTRAST INDICATION / CLINICAL INFORMATION: abnormal tissue mass in transverse colon. TECHNIQUE: Axial CT images were obtained through the abdomen and pelvis after 100 cc Omnipaque [address] scans at this location are performed using CT dose reduction for ALARA by means of automated exposure control. COMPARISON: CT scan dated 01/10/2019 FINDINGS: LOWER CHEST: There small bilateral pleural effusions which have developed since the prior study. LIVER: There is a cyst in the left lobe of the liver which is unchanged. GALLBLADDER: There is pericholecystic fluid and there is apparent thickening of the gallbladder wall BILE DUCTS: Slightly dilated measuring 8 mm. PANCREAS: Pancreatic duct is dilated measuring up to 5 mm in diameter. There is some mild inflammatio n in the peripancreatic fat SPLEEN: No significant abnormality. ADRENALS: No significant abnormality. RIGHT KIDNEY and URETER: No significant abnormality. LEFT KIDNEY and URETER: No significant abnormality. STOMACH and SMALL BOWEL: The duodenum is abnormal in appearance. There is wall thickening within the first and second portions of the duodenum there are small collections of fluid in the wall or mediall y adjacent to the wall of the duodenum measuring up to 2.7 cm. No obstruction is seen. COLON: The distal right colon, hepatic flexure of the colon and transverse colon are markedly abnorma l in appearance. Colonic wall is thickened. There is a complex fluid and soft tissue collection invol ving the hepatic flexure measuring up to 8.7 x 7.8 cm. This is increased in size the prior study APPENDIX: No significant abnormality. PERITONEUM: There is a trace amount of ascites in the pelvis No free air. LYMPH NODES: There are shoddy nodes in the mesentery in the retroperitoneum. These are not significan tly enlarged but are somewhat increased in number AORTA and ARTERIES: No significant abnormality IVC and VEINS: No significant abnormality. URINARY BLADDER: No significant abnormality. REPRODUCTIVE ORGANS: There is mild prostatic enlargement is unchanged. ADDITIONAL FINDINGS: None. SKELETAL SYSTEM: No significant abnormality. IMPRESSION: 1. Severe inflammatory process involving the colon centered at the level the hepatic flexure is again noted and has shown some interval worsening since 01/10/2019. Inflammation involving the proximal du odenum and gallbladder and head of the pancreas is again noted and has shown some progression as well . The process appears to be predominantly centered: The differential diagnosis includes a perforated colonic neoplasm with secondary inflammation and abscess. Possibility that this represents a severe i nflammatory process such as diverticulitis is included in the differential diagnosis. Signer Name: Roland Salazar MD Signed: 01/13/2019 1:56 PM Workstation Name: [id number]
--- NOTE | 2019-01-13 18:36 | Progress Note ---
Assessment and Plan - Patient Problems (1) Abdominal abscess Current Visit: Yes Status: Acute Plan to address problem: At present patient being treated for abdominal abscess. It was thought the patient may have had a colonic mass. Status post colonoscopy no mass. Patient is afebrile has leukocytosis. Currently continue treatment with Zosyn for an abscess ID following. (2) Abdominal pain Current Visit: Yes Status: Acute Qualifiers: Abdominal location: right upper quadrant Qualified Code(s): R10.11 - Right upper quadrant pain Plan to address problem: Dominant pain resolved. Still ruling out malignancy. ID note appreciated that rare to fine isolated infection with this presentation. Continue supportive care. Electrolyte abnormalities. Diverticulitis remains in the differential. History Interval history: pt at present denies any abdominal pain fells good patient states are no longer have pain. No fever overnight no bleeding tolerating by mouth. Hospitalist Physical - Constitutional Vitals: Temp Pulse Resp BP Pulse Ox 100.9 F H 94 H 20 105/61 99 01/13/19 11:52 01/13/19 11:52 01/13/19 11:52 01/13/19 11:52 01/13/19 11:52 General appearance: Present: no acute distress, mild distress - EENT Eyes: Present: PERRL, EOM intact ENT: hearing intact, clear oral mucosa, dentition normal - Neck Neck: Present: supple, normal ROM - Respiratory Respiratory: bilateral: CTA - Cardiovascular Rhythm: regular - Extremities Extremities: no ischemia, pulses intact, pulses symmetrical, No edema, normal temperature, normal color Peripheral Pulses: within normal limits - Abdominal General gastrointestinal: soft, non-tender, hypoactive bowel sounds, no hepatomegaly, no splenomegaly - Integumentary Integumentary: Present: clear, warm, dry - Psychiatric Psychiatric: appropriate mood/affect, intact judgment & insight, memory intact Results - Labs CBC & Chem 7: 01/13/19 05:04 01/13/19 05:04 Labs: Laboratory Last Values WBC 17.6 K/mm3 (4.5-11.0) H 01/13/19 05:04 RBC 3.84 M/mm3 (3.65-5.03) 01/13/19 05:04 Hgb 8.4 gm/dl (11.8-15.2) L 01/13/19 05:04 Hct 28.1 % (35.5-45.6) L 01/13/19 05:04 MCV 73 fl (84-94) L 01/13/19 05:04 MCH 22 pg (28-32) L 01/13/19 05:04 MCHC 30 % (32-34) L 01/13/19 05:04 RDW 20.9 % (13.2-15.2) H 01/13/19 05:04 Plt Count 469 K/mm3 (140-440) H 01/13/19 05:04 Lymph % (Auto) Reports Analysis Manager 01/10/19 18:51 [place] % (Auto) Reports Analysis Manager 01/10/19 18:51 Eos % (Auto) Reports Analysis Manager 01/10/19 18:51 Baso % (Auto) Reports Analysis Manager 01/10/19 18:51 Lymph # Reports Analysis Manager 01/10/19 18:51 [place] # Reports Analysis Manager 01/10/19 18:51 Eos # Reports Analysis Manager 01/10/19 18:51 Baso # Reports Analysis Manager 01/10/19 18:51 Add Manual Diff Complete 01/12/19 04:49 Total Counted 100 01/12/19 04:49 Seg Neutrophils % Reports Analysis Manager 01/10/19 18:51 Seg Neuts % (Manual) 96.0 % (40.0-70.0) H 01/12/19 04:49 Band Neutrophils % 0 % 01/12/19 04:49 Lymphocytes % (Manual) 2.0 % (13.4-35.0) L 01/12/19 04:49 Reactive Lymphs % (Man) 0 % 01/12/19 04:49 Monocytes % (Manual) 2.0 % (0.0-7.3) 01/12/19 04:49 Eosinophils % (Manual) 0 % (0.0-4.3) 01/12/19 04:49 Basophils % (Manual) 0 % (0.0-1.8) 01/12/19 04:49 Metamyelocytes % 0 % 01/12/19 04:49 Myelocytes % 0 % 01/12/19 04:49 Promyelocytes % 0 % 01/12/19 04:49 Blast Cells % 0 % 01/12/19 04:49 Nucleated RBC % Not Reportable 01/12/19 04:49 Seg Neutrophils # Reports Analysis Manager 01/10/19 18:51 Seg Neutrophils # Man 19.8 K/mm3 (1.8-7.7) H 01/12/19 04:49 Band Neutrophils # 0.0 K/mm3 01/12/19 04:49 Lymphocytes # (Manual) 0.4 K/mm3 (1.2-5.4) L 01/12/19 04:49 Abs React Lymphs (Man) 0.0 K/mm3 01/12/19 04:49 Monocytes # (Manual) 0.4 K/mm3 (0.0-0.8) 01/12/19 04:49 Eosinophils # (Manual) 0.0 K/mm3 (0.0-0.4) 01/12/19 04:49 Basophils # (Manual) 0.0 K/mm3 (0.0-0.1) 01/12/19 04:49 Metamyelocytes # 0.0 K/mm3 01/12/19 04:49 Myelocytes # 0.0 K/mm3 01/12/19 04:49 Promyelocytes # 0.0 K/mm3 01/12/19 04:49 Blast Cells # 0.0 K/mm3 01/12/19 04:49 WBC Morphology Not Reportable 01/12/19 04:49 Hypersegmented Neuts Not Reportable 01/12/19 04:49 Hyposegmented Neuts Not Reportable 01/12/19 04:49 Hypogranular Neuts Not Reportable 01/12/19 04:49 Smudge Cells Not Reportable 01/12/19 04:49 Toxic Granulation Not Reportable 01/12/19 04:49 Toxic Vacuolation Not Reportable 01/12/19 04:49 Dohle Bodies Not Reportable 01/12/19 04:49 Pelger-Huet Anomaly Not Reportable 01/12/19 04:49 Angela Rods Not Reportable 01/12/19 04:49 Platelet Estimate Consistent w auto 01/12/19 04:49 Clumped Platelets Not Reportable 01/12/19 04:49 Plt Clumps, EDTA Not Reportable 01/12/19 04:49 Large Platelets Not Reportable 01/12/19 04:49 Giant Platelets Not Reportable 01/12/19 04:49 Platelet Satelliting Not Reportable 01/12/19 04:49 Plt Morphology Comment Not Reportable 01/12/19 04:49 RBC Morphology Not Reportable 01/12/19 04:49 Dimorphic RBCs Not Reportable 01/12/19 04:49 Polychromasia Not Reportable 01/12/19 04:49 Hypochromasia 2+ 01/12/19 04:49 Poikilocytosis Not Reportable 01/12/19 04:49 Anisocytosis 1+ 01/12/19 04:49 Microcytosis Not Reportable 01/12/19 04:49 Macrocytosis Not Reportable 01/12/19 04:49 Spherocytes Not Reportable 01/12/19 04:49 Pappenheimer Bodies Not Reportable 01/12/19 04:49 Sickle Cells Not Reportable 01/12/19 04:49 Target Cells Not Reportable 01/12/19 04:49 Tear Drop Cells Not Reportable 01/12/19 04:49 Ovalocytes Not Reportable 01/12/19 04:49 Helmet Cells Not Reportable 01/12/19 04:49 [place] Bodies Not Reportable 01/12/19 04:49 [place] Rings Not Reportable 01/12/19 04:49 [place] Cells Not Reportable 01/12/19 04:49 Bite Cells Not Reportable 01/12/19 04:49 Crenated Cell Not Reportable 01/12/19 04:49 Elliptocytes Not Reportable 01/12/19 04:49 Acanthocytes (Spur) Not Reportable 01/12/19 04:49 Rouleaux Not Reportable 01/12/19 04:49 Hemoglobin C Crystals Not Reportable 01/12/19 04:49 Schistocytes Not Reportable 01/12/19 04:49 Malaria parasites Not Reportable 01/12/19 04:49 [place] Bodies Not Reportable 01/12/19 04:49 Hem Pathologist Commnt No 01/12/19 04:49 Sodium 137 mmol/L (137-145) 01/13/19 05:04 Potassium 3.2 mmol/L (3.6-5.0) L 01/13/19 05:04 Chloride 107.0 mmol/L (98-107) 01/13/19 05:04 Carbon Dioxide 17 mmol/L (22-30) L 01/13/19 05:04 Anion Gap 16 mmol/L 01/13/19 05:04 BUN 3 mg/dL (9-20) L 01/13/19 05:04 Creatinine 0.7 mg/dL (0.8-1.5) L 01/13/19 05:04 Estimated GFR > 60 ml/min 01/13/19 05:04 BUN/Creatinine Ratio 4 % 01/13/19 05:04 Glucose 101 mg/dL (75-100) H 01/13/19 05:04 Calcium 7.7 mg/dL (8.4-10.2) L 01/13/19 05:04 Total Bilirubin 0.40 mg/dL (0.1-1.2) 01/12/19 04:49 AST 15 units/L (5-40) 01/12/19 04:49 ALT 8 units/L (7-56) 01/12/19 04:49 Alkaline Phosphatase 80 units/L (35-129) 01/12/19 04:49 Total Protein 6.8 g/dL (6.3-8.2) D 01/12/19 04:49 Albumin 2.3 g/dL (3.9-5) L 01/12/19 04:49 Albumin/Globulin Ratio 0.5 % 01/12/19 04:49 Lipase 17 units/L (13-60) 01/10/19 18:51 Urine Color Sybil (Yellow) 01/10/19 Unknown Urine Turbidity Slightly-cloudy (Clear) 01/10/19 Unknown Urine pH 5.0 (5.0-7.0) 01/10/19 Unknown Ur Specific [place] 1.021 (1.003-1.030) 01/10/19 Unknown Urine Protein 30 mg/dl mg/dL (Negative) 01/10/19 Unknown Urine Glucose (UA) Neg mg/dL (Negative) 01/10/19 Unknown Urine Ketones 20 mg/dL (Negative) 01/10/19 Unknown Urine Blood Neg (Negative) 01/10/19 Unknown Urine Nitrite Neg (Negative) 01/10/19 Unknown Urine Bilirubin Neg (Negative) 01/10/19 Unknown Urine Urobilinogen < 2.0 mg/dL (<2.0) 01/10/19 Unknown Ur Leukocyte Esterase Neg (Negative) 01/10/19 Unknown Urine WBC (Auto) 3.0 /HPF (0.0-6.0) 01/10/19 Unknown Urine RBC (Auto) 2.0 /HPF (0.0-6.0) 01/10/19 Unknown Urine Mucus 1+ /HPF 01/10/19 Unknown Active Medications - Current Medications Current Medications: Generic Name Dose Route Start Last Admin Trade Name Freq PRN Reason Stop Dose Admin Acetaminophen 650 mg 01/10/19 23:16 01/12/19 05:27 Tylenol NE 650 mg Q4H PRN Administration Fever >101 Sodium Chloride 1,000 mls @ 150 mls/hr 01/11/19 05:00 01/13/19 11:37 Nacl 0.9% 1000 Ml IV 150 mls/hr DIRECT ALPESH Administration Sodium Chloride 1,000 mls @ 50 mls/hr 01/12/19 09:00 01/12/19 11:49 Nacl 0.9% 1000 Ml IV 50 mls/hr DIRECT ALPESH Administration Piperacillin Sod/Tazobactam Sod 3.375 gm in 50 mls @ 100 mls/hr 01/13/19 00:00 01/13/19 17:57 Zosyn/Ns 3.375gm/50ml IV 100 mls/hr Q6HR ALPESH Administration Protocol Morphine Sulfate 2 mg 01/10/19 23:16 01/11/19 10:26 Morphine IV 2 mg Q4H PRN Administration Pain, Moderate (4-6) Ondansetron HCl 4 mg 01/10/19 23:12 Zofran IV Q8H PRN Nausea And Vomiting Nutrition/Malnutrition Assess - Dietary Evaluation Nutrition/Malnutrition Findings: Nutrition Notes Start: 01/12/19 12:33 Freq: Status: Active Protocol: Document 01/13/19 12:35 RM (Rec: 01/13/19 12:47 RM [email or web address]) Nutrition Notes Initial or Follow up Assessment Current Diagnosis Sepsis Other Pertinent Diagnosis Intraabdominal abscess vs colon malignancy, Abdominal pain Current Diet Clear liquid Labs/Tests Reviewed Pertinent Medications Reviewed Height 5 ft 6 in Weight 60 kg Usual Body Weight 63.64 kg [place] Body Weight (kg) 64.54 BMI 21.3 Weight change and time frame 5.7% wt loss X 2 weeks Subjective/Other Information 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 Stated that his appetite is poor but he drinks all of his meals. Denied N/V. Stated UBW was 140 lbs 2 weeks ago. Noted temporal and orbital wasting. Burn Absent Trauma Absent Minimum of two criteria Yes Interpretation of Weight Loss (severe) >5% in 1 month Body Fat Depletion Mild depletion (non-severe) Muscle Mass Moderate Depletion (severe) #1 Nutrition Diagnosis Malnutrition Etiology abdominal pain As Evidenced by Signs and Symptoms pt statement that SOL[employer] DEVELOPMENT ENGINEER he ate 2 meals daily, temporal wasting , orbital wasting Is patient on ventilator? No Is Patient Ambulatory and/or Out of Bed Yes REE-([facility]-ambulatory/OOB) [ 1778.075 [id number]] Calculation Used for Recommendations [facility] Additional Notes Pro needs 1.2-1.5g/k-90g/ day Fluid needs 1ml/kcal Nutrition Intervention Change Diet Order: Advance diet when medically able Add Supplement/Snack (indicate name/kcal Ensure Clear 1 daily /protein ) Provides kCal: 240 Provides Protein (gm) 8 Goal #1 Diet advancement Anticipated Discharge Needs: Unable to determine at this time Follow-Up By: 01/15/19 Additional Comments Follow for PO and ONS intakes
[2019-01-14] MEDS: NACL 0.9% 1000 ML 1,000 ML IV SCH ×2 (03:58→05:54)
[2019-01-14] MEDS: ZOSYN/NS 3.375GM/50ML 3.375 GM/50 ML BAG IV SCH (06:00)
--- NOTE | 2019-01-14 10:15 | Progress Note ---
Assessment and Plan - Patient Problems (1) Abdominal pain Current Visit: Yes Status: Acute Qualifiers: Abdominal location: right upper quadrant Qualified Code(s): R10.11 - Right upper quadrant pain Plan to address problem: Pt stable. Reviewed CT scan. There is a fair amount of inflammatory reaction centered around the hepatic flexure. That area still has a very abnormal appearance. Patient currently is pain free. Feels much better. He is tolerating a diet. I am still worried about the potential for malignancy even though the C-scope biopsies were negative. We discussed options of discharge with antibiotics and follow-up versus surgery now. Patient wishes to hold off on surgery for the time being. He agrees to follow-up. The plan will be to get a repeat CT scan at that time. We will then make a plan based on the latest CT results. Plan discussed with Drs. Castro and José Miguel. f/u in Gen Surg clinic in 3 weeks. Please call with questions. time=10min Subjective Date of service: 01/14/19 Patient Reports: Positive: no new complaints, feels better, tolerating liquids well, bowel movement Objective Vital Signs - 12hr 01/13/19 01/14/19 23:25 05:22 Temperature 98.3 F 99.0 F Pulse Rate 78 81 Respiratory 17 16 Rate Blood Pressure 109/58 Blood Pressure 110/59 [Right] O2 Sat by Pulse 99 99 Oximetry - General physical appearance no distress, no pain - Respiratory normal expansion, normal respiratory effort - Abdomen soft, not tender, not distended, masses, not guarding, not rigid - Integumentary no rash, no growths, no abnormal pigmentation - Psychiatric oriented to time, oriented to person, oriented to place, speech is normal, memory intact - Labs 01/13/19 05:04 01/13/19 05:04
--- NOTE | 2019-01-14 10:41 | Discharge Summary ---
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 CT scan show colonic mass versus abscess. Patient had a colonoscopy which showed no mass only edema of the mucosa. Patient defervesced with IV antibiotics. Clinical picture was thought to be cancer with abscess or perforation. But she was seen on colonoscopy and biopsies were negative. Patient also responded to IV antibiotics. Patient was treated as if this were infection and inflammation. Patient did not want any surgical options at this time and will follow up with Dr. Galvin surgery in several weeks. Patient stable for discharge and follow with surgery in 1 week. We'll discharge home on antibiotic coverage Levaquin and Flagyl. Disposition: - TO HOME OR SELFCARE - Discharge Diagnoses (1) Abdominal abscess Status: Acute Comment: Continue IV antibiotics used. Antibiotics for an additional 7 days. (2) Abdominal pain Status: Acute Qualifiers: Abdominal location: right upper quadrant Qualified Code(s): R10.11 - Right upper quadrant pain Comment: Pain resolved. She'll refuse any surgical options. Was to follow up 1 week. Core Measure Documentation - Palliative Care Palliative Care/ Comfort Measures: Not Applicable - Core Measures Any of the following diagnoses?: none Exam - Constitutional Vitals: Temp Pulse Resp BP Pulse Ox 99.0 F 81 16 109/58 99 01/14/19 05:22 01/14/19 05:22 01/14/19 05:22 01/14/19 05:22 01/14/19 05:22 General appearance: Present: no acute distress, well-nourished - EENT Eyes: Present: PERRL ENT: hearing intact, clear oral mucosa - Neck Neck: Present: supple, normal ROM - Respiratory Respiratory effort: normal Respiratory: bilateral: CTA - Cardiovascular Heart Sounds: Present: S1 & S2. Absent: rub, click - Extremities Extremities: pulses symmetrical, No edema Peripheral Pulses: within normal limits - Abdominal General gastrointestinal: Present: soft, non-tender, non-distended, normal bowel sounds Male genitourinary: Present: normal - Integumentary Integumentary: Present: clear, warm, dry - Musculoskeletal Musculoskeletal: gait normal, strength equal bilaterally - Psychiatric Psychiatric: appropriate mood/affect, intact judgment & insight - Neurologic Neurologic: CNII-XII intact, moves all extremities Plan Activity: no restrictions Diet: regular Follow up with: PRIMARY CARE, [Primary Care Provider] - 7 Days
[2019-01-14 12:04] VITALS: BP 98/59
== END 2019-01-14 16:15 | disposition home or self-care (01) | DRG 871 ==
LOC: ED 18:26 → 3A 23:09
PROVIDERS: ADMIT Internal Medicine; ATTEND Internal Medicine
PROC: 0DBL8ZX Excision of Transverse Colon, Via Natural or Artificial Opening Endoscopic, Diagnostic (ICD-10-PCS; principal; 2019-01-12)
DX: A41.9 Sepsis, unspecified organism (principal); K65.1 Peritoneal abscess; E87.1 Hypo-osmolality and hyponatremia; E86.1 Hypovolemia; D50.9 Iron deficiency anemia, unspecified; K64.8 Other hemorrhoids; Z88.8 Allergy status to other drugs, medicaments and biological substances; Z80.0 Family history of malignant neoplasm of digestive organs; Z79.899 Other long term (current) drug therapy
CPT/HCPCS: 36415; 71046; 74177; 80048; 80053; 81001; 82164; 82378; 83690; 85007; 85025; 85027; 87040; 88305; 90686; 93005; 93010; 96365; G0378; J1956; J2270; J2543; J2704; J7030; Q9967